=== PATIENT | female | born 1940 | race Caucasian/White ===

== ENCOUNTER 2016-07-23 18:40 | Observation (INO) | payer OTHER ==
[~2016-07-23] VITALS: Ht 160 cm; Wt 80.4 kg
[~2016-07-23 18:40] MED LIST: ATV/1 PO; FERR1TAB23 PO; FURO-85 PO; GABA-113 PO; LPR25 PO; POTA-335 PO; PRLSR20 PO; SERT-234 PO; SUCR1TAB29 PO; VSC/5 PO
--- NOTE | 2016-07-23 19:23 | DIAGNOSTIC IMAGING REPORT ---
SINGLE VIEW CHEST CLINICAL HISTORY: Dyspnea. FINDINGS: An AP, portable, semierect chest radiograph is compared to study dated 05/13/2016 and correlated with chest CT dated 02/06/2013. The examination is degraded by portable technique, large body habitus, and patient rotation. The heart is enlarged and there is atherosclerotic calcification of the thoracic aorta. The pulmonary vasculature is noncongested. There is chronic elevation of the left hemidiaphragm with left basilar atelectasis. No airspace consolidation is seen typical for pneumonia and there is no large pleural effusion. No pneumothorax is seen. The skeletal structures are osteopenic. Calcific tendinopathy is present in the right shoulder. The bony thorax is grossly intact. Thoracolumbar fusion hardware is partially imaged. IMPRESSION: 1. Cardiomegaly without radiographic evidence of congestive failure. 2. Chronic parenchymal changes are similar to prior studies. There is no acute abnormality seen. Electronically signed by: Pelon Ring M.D. 07/23/2016 7:21 PM Dictated Date/Time: 07/23/2016 7:20 PM
[2016-07-23] MEDS ORDERED: OPTIRAY 320 IV PRN (19:30)
[2016-07-23 19:32] LABS: BASO % 0.3 %; BASO ABS # 0.02 K/uL (0-0.2); COMPLETE YES; EOS % 3.5 %; HEMATOCRIT 43.4 % (37-47); IG% 0.2 %; LYMPH % 12.9 %; LYMPH ABS # 0.81 K/uL (1.2-3.4); MEAN CELL VOLUME 92.1 fL (80-100); MEAN CORPUSCULAR HEMOGLOBIN 31.4 pg (25-34); MEAN CORPUSCULAR HGB CONC 34.1 g/dl (32-36); MEAN PLATELET VOLUME 9.4 fL (7.4-10.4); MONO % 6.3 %; NEUT % 76.8 %; PLATELET COUNT 227 K/uL (130-400); RED BLOOD COUNT 4.71 M/uL (4.2-5.4)
[2016-07-23 19:43] LABS: PROTHROMBIN TIME (PATIENT) 10.3 SECONDS (9.0-12.0)
[2016-07-23 19:48] LABS: BLOOD UREA NITROGEN 18 mg/dl (7-18); BUN/CREATININE RATIO 25.8 (10-20); CALCIUM 8.9 mg/dl (8.5-10.1); CARBON DIOXIDE 28 mmol/L (21-32); CHLORIDE 105 mmol/L (98-107); CREATININE 0.71 mg/dl (0.60-1.20); GLUCOSE 112 mg/dl (70-99); POTASSIUM 4.1 mmol/L (3.5-5.1); SODIUM 143 mmol/L (136-145)
[2016-07-23] MEDS ORDERED: FUROSEMIDE 40 MG/4 ML VIAL IV STA (20:18)
--- NOTE | 2016-07-23 20:42 | DIAGNOSTIC IMAGING REPORT ---
CT ANGIOGRAM OF THE CHEST CLINICAL HISTORY: Dyspnea. COMPARISON STUDY: Chest x-ray dated 07/23/2016. Chest CT dated 02/06/2013. TECHNIQUE: Following the IV administration of 109 cc of Optiray 320, CT angiogram of the chest was performed from the upper abdomen to the thoracic inlet utilizing the pulmonary embolus protocol. Images are reviewed in the axial, sagittal, and coronal planes. 3-D MIPS images are created and assessed. IV contrast was administered without complication. Streak artifact from orthopedic hardware degrades the examination. CT DOSE: 568.14 mGy.cm FINDINGS: Thyroid: Imaged portions of the thyroid gland are normal in size and attenuation. Thoracic aorta: There is mild atherosclerotic calcification of the thoracic aorta, which is normal in caliber and demonstrates bovine variant arch anatomy. No dissection is seen. Pulmonary vasculature: The main pulmonary arteries are dilated suggesting pulmonary artery hypertension. There are no filling defects identified in main, lobar, or segmental pulmonary branches to suggest pulmonary embolus. Heart: The heart is enlarged and there is a small pericardial effusion. Lungs and pleural spaces: Evaluation of the lung parenchyma is significantly degraded by respiratory motion artifact. There is chronic elevation of the left hemidiaphragm with left basilar atelectasis. No airspace consolidation or pleural effusion is identified. There are scattered calcified granulomas. The trachea and central airways are clear. Mediastinum: There is no mediastinal lymphadenopathy. Priscilla: Clear. Axillae: There is no axillary lymphadenopathy. Upper abdomen: The spleen is mildly enlarged measuring 14 cm in length. Calcified splenic granulomas are observed. An indeterminant 1.2 splenic hypodensity is again noted Cortical atrophy is noted in the partially imaged kidneys. There is a tiny hiatal hernia. Skeletal structures: The skeletal structures are osteopenic. No lytic or blastic bony lesions are seen. Degenerative change is present throughout the thoracic spine. Postoperative change and fusion rods are identified at the thoracolumbar junction. Fusion hardware is also noted in the lower cervical spine. Arthritic change is also identified in the shoulders. IMPRESSION: 1. Motion degraded examination. 2. There is no evidence of pulmonary embolus in the main, lobar, or segmental pulmonary arteries. 3. Cardiomegaly. 4. There is no airspace consolidation or pleural effusion. 5. Mild splenomegaly. 6. Additional changes as above. Electronically signed by: Pelon Ring M.D. 07/23/2016 8:40 PM Dictated Date/Time: 07/23/2016 8:31 PM
[2016-07-23 21:55] LABS: ALKALINE PHOSPHATASE 104 U/L (45-117); ALT/SGPT 25 U/L (12-78); AST/SGOT 20 U/L (15-37)
--- NOTE | 2016-07-23 22:01 | EMERGENCY ROOM VISIT NOTE ---
History Report prepared by Marlen: Makenzie Toscano Under the Supervision of: Dr. Edyta Shook M.D. First contact with patient: 18:56 Chief Complaint: BACK PAIN Stated Complaint: BACK PAIN History of Present Illness The patient is a 76 year old female who presents to the Emergency Room with complaints of worsening back pain for the past week. She also reports shortness of breath. She was feeling well today, but states that after eating dinner this evening her symptoms returned and were worse. The patient rates her pain as an 8 /10 in severity. Walking exacerbates her pain. She notes a feeling of "tightness " in her back. She denies fever, cough, and abdominal pain, and pain or swelling in her legs. Source of History: patient Onset: 1 week ago Position: back Symptom Intensity: 8/10 Quality: other (tightness) Timing: worsening Modifying Factors (Worsening): other (walking) Associated Symptoms: + SOB, No abdominal pain, No cough, No fevers Review of Systems See HPI for pertinent positives & negatives. A total of 10 systems reviewed and were otherwise negative. Past Medical & Surgical Medical Problems: (1) Arthritis (2) Benign hypertension (3) Hyperlipidemia (4) Osteoporosis Nos Surgical Problems: (1) Abn React-Artif Implant (2) Acq Spondylolisthesis (3) Spinal Stenosis-Thoracic Family History No pertinent family history Social History Smoking Status: Never Smoker Alcohol Use: none Drug Use: none Marital Status: Housing Status: lives with family Occupation Status: retired Current/Historical Medications Scheduled Ferrous Sulfate (Iron), 325 MG PO DAILY Furosemide (Lasix), 20 MG PO QAM Gabapentin (Neurontin), 300 MG PO QID Metoprolol Tartrate (Lopressor), 25 MG PO BID Omeprazole (Prilosec), 20 MG PO DAILY Potassium Chloride (Micro-K Ext Rel), 20 MEQ PO DAILY Sertraline (Zoloft), 100 MG PO QPM Solifenacin (Vesicare), 5 MG PO DAILY Scheduled PRN Lorazepam (Ativan), 1 MG PO TID PRN for Anxiety Allergies Coded Allergies: No Known Allergies (Unverified , 05/13/16) Physical Exam Vital Signs Date Time Temp Pulse Resp B/P Pulse Ox O2 Delivery O2 Flow Rate FiO2 07/23/16 20:35 70 20 165/97 93 Room Air 07/23/16 19:20 61 07/23/16 18:43 36.8 77 20 179/99 91 Room Air Physical Exam CONSTITUTIONAL: Mild distress HEENT: No icterus, moist mucous membranes NECK: No meningismus, trachea is midline. CARDIOVASCULAR: Regular rate, normal perfusion RESPIRATORY: Unlabored breathing. Clear to auscultation. GASTROINTESTINAL: Non-tender GENITOURINARY: No flank tenderness MUSCULOSKELETAL: Full range of motion NEUROLOGIC: No acute gross focal deficits. PSYCHIATRIC: Normal affect SKIN: Normal for ethnicity. Medical Decision & Procedures ER Provider Diagnostic Interpretation: Radiology results as stated below per my review and radiologist interpretation. CT ANGIOGRAM OF THE CHEST CLINICAL HISTORY: Dyspnea. COMPARISON STUDY: Chest x-ray dated 07/23/2016. Chest CT dated 02/06/2013. TECHNIQUE: Following the IV administration of 109 cc of Optiray 320, CT angiogram of the chest was performed from the upper abdomen to the thoracic inlet utilizing the pulmonary embolus protocol. Images are reviewed in the axial, sagittal, and coronal planes. 3-D MIPS images are created and assessed. IV contrast was administered without complication. Streak artifact from orthopedic hardware degrades the examination. CT DOSE: 568.14 mGy.cm FINDINGS: Thyroid: Imaged portions of the thyroid gland are normal in size and attenuation. Thoracic aorta: There is mild atherosclerotic calcification of the thoracic aorta, which is normal in caliber and demonstrates bovine variant arch anatomy. No dissection is seen. Pulmonary vasculature: The main pulmonary arteries are dilated suggesting pulmonary artery hypertension. There are no filling defects identified in main, lobar, or segmental pulmonary branches to suggest pulmonary embolus. Heart: The heart is enlarged and there is a small pericardial effusion. Lungs and pleural spaces: Evaluation of the lung parenchyma is significantly degraded by respiratory motion artifact. There is chronic elevation of the left hemidiaphragm with left basilar atelectasis. No airspace consolidation or pleural effusion is identified. There are scattered calcified granulomas. The trachea and central airways are clear. Mediastinum: There is no mediastinal lymphadenopathy. Priscilla: Clear. Axillae: There is no axillary lymphadenopathy. Upper abdomen: The spleen is mildly enlarged measuring 14 cm in length. Calcified splenic granulomas are observed. An indeterminant 1.2 splenic hypodensity is again noted Cortical atrophy is noted in the partially imaged kidneys. There is a tiny hiatal hernia. Skeletal structures: The skeletal structures are osteopenic. No lytic or blastic bony lesions are seen. Degenerative change is present throughout the thoracic spine. Postoperative change and fusion rods are identified at the thoracolumbar junction. Fusion hardware is also noted in the lower cervical spine. Arthritic change is also identified in the shoulders. IMPRESSION: 1. Motion degraded examination. 2. There is no evidence of pulmonary embolus in the main, lobar, or segmental pulmonary arteries. 3. Cardiomegaly. 4. There is no airspace consolidation or pleural effusion. 5. Mild splenomegaly. 6. Additional changes as above. Electronically signed by: Pelon Ring M.D. 07/23/2016 8:40 PM Dictated Date/Time: 07/23/2016 8:31 PM SINGLE VIEW CHEST CLINICAL HISTORY: Dyspnea. FINDINGS: An AP, portable, semierect chest radiograph is compared to study dated 05/13/2016 and correlated with chest CT dated 02/06/2013. The examination is degraded by portable technique, large body habitus, and patient rotation. The heart is enlarged and there is atherosclerotic calcification of the thoracic aorta. The pulmonary vasculature is noncongested. There is chronic elevation of the left hemidiaphragm with left basilar atelectasis. No airspace consolidation is seen typical for pneumonia and there is no large pleural effusion. No pneumothorax is seen. The skeletal structures are osteopenic. Calcific tendinopathy is present in the right shoulder. The bony thorax is grossly intact. Thoracolumbar fusion hardware is partially imaged. IMPRESSION: 1. Cardiomegaly without radiographic evidence of congestive failure. 2. Chronic parenchymal changes are similar to prior studies. There is no acute abnormality seen. Electronically signed by: Pelon Ring M.D. 07/23/2016 7:21 PM Dictated Date/Time: 07/23/2016 7:20 PM Laboratory Results 07/23/16 19:20 Red Blood Count 4.71, Mean Corpuscular Volume 92.1, Mean Corpuscular Hemoglobin 31.4, Mean Corpuscular Hemoglobin Concent 34.1, Mean Platelet Volume 9.4, Neutrophils (%) (Auto) 76.8, Lymphocytes (%) (Auto) 12.9, Monocytes (%) (Auto) 6.3, Eosinophils (%) (Auto) 3.5, Basophils (%) (Auto) 0.3, Neutrophils # (Auto) 4.84, Lymphocytes # (Auto) 0.81, Monocytes # (Auto) 0.40, Eosinophils # (Auto) 0.22, Basophils # (Auto) 0.02 07/23/16 19:20 Test 07/23/16 19:20 07/23/16 21:30 White Blood Count 6.30 K/uL (4.8-10.8) Red Blood Count 4.71 M/uL (4.2-5.4) Hemoglobin 14.8 g/dL (12.0-16.0) Hematocrit 43.4 % (37-47) Mean Corpuscular Volume 92.1 fL (80-100) Mean Corpuscular Hemoglobin 31.4 pg (25-34) Mean Corpuscular Hemoglobin Concent 34.1 g/dl (32-36) Platelet Count 227 K/uL (130-400) Mean Platelet Volume 9.4 fL (7.4-10.4) Neutrophils (%) (Auto) 76.8 % Lymphocytes (%) (Auto) 12.9 % Monocytes (%) (Auto) 6.3 % Eosinophils (%) (Auto) 3.5 % Basophils (%) (Auto) 0.3 % Neutrophils # (Auto) 4.84 K/uL (1.4-6.5) Lymphocytes # (Auto) 0.81 K/uL (1.2-3.4) Monocytes # (Auto) 0.40 K/uL (0.11-0.59) Eosinophils # (Auto) 0.22 K/uL (0-0.5) Basophils # (Auto) 0.02 K/uL (0-0.2) RDW Standard Deviation 44.5 fL (36.4-46.3) RDW Coefficient of Variation 13.2 % (11.5-14.5) Immature Granulocyte % (Auto) 0.2 % Immature Granulocyte # (Auto) 0.01 K/uL (0.00-0.02) Prothrombin Time 10.3 SECONDS (9.0-12.0) Prothromb Time International Ratio 1.0 (0.9-1.1) Activated Partial Thromboplast Time 26.1 SECONDS (21.0-31.0) Partial Thromboplastin Ratio 1.0 Anion Gap 10.0 mmol/L (3-11) Estimated GFR () 97.3 Estimated GFR (Non- 83.9 BUN/Creatinine Ratio 25.8 (10-20) Calcium Level 8.9 mg/dl (8.5-10.1) Total Bilirubin 0.3 mg/dl (0.2-1) Direct Bilirubin < 0.1 mg/dl (0-0.2) Aspartate Amino Transf (AST/SGOT) 20 U/L (15-37) Alanine Aminotransferase (ALT/SGPT) 25 U/L (12-78) Alkaline Phosphatase 104 U/L (45-117) Troponin I 0.015 ng/ml (0-0.045) Pro-B-Type Natriuretic Peptide 6255 pg/ml (0-900) Total Protein 6.7 gm/dl (6.4-8.2) Albumin 4.2 gm/dl (3.4-5.0) Labs reviewed by ED physician. Medications Administered Medications (Trade) Dose Ordered Sig/Lashawn Route Start Time Stop Time Status Last Admin Dose Admin Furosemide (Lasix Inj) 40 mg NOW STAT IV 07/23/16 20:18 07/23/16 20:19 DC 07/23/16 20:35 40 MG ECG Indication: back/shoulder pain Rate (beats per minute): 61 Rhythm: normal sinus Findings: nonspecific-ST abn, RBBB ED Course 1857: Past medical records reviewed. The patient was evaluated in room C7. A complete history and physical examination was performed. 2018: Lasix 40 mg IV 2128: I spoke with Dr. Bryant. We discussed the patients results and treatment plan. The patient will be evaluated by the [facility] for further management. 2131: I reassessed the patient at this time. She is feeling better and resting comfortably. I discussed the results and treatment plan with the patient. I answered all pertaining questions that she had. She expressed understanding and verbalized agreement. Medical Decision Differential diagnoses includes musculoskeletal back pain, pulmonary embolism, coronary artery disease, CHF, pneumonia. 76-year-old presents to the emergency room for roughly 1 week of progressively worsening dyspnea with exertion with nonspecific nonpleuritic non-positional back pain which may have an exertional component. Bibasilar rales noted as well as mild pedal edema. B natruretic peptide noted to be elevated with satisfactory EKG and troponin. . Given Lasix IV and admission arranged with Dr. Berman Consults Time Called: 2114 Consulting Physician: Dr. Bryant Returned Call: [address] Bryant. We discussed the patients results and treatment plan. The patient will be evaluated by the [facility] for further management. Impression Primary Impression: CHF (congestive heart failure) Scribe Attestation The scribe's documentation has been prepared under my direction and personally reviewed by me in its entirety. I confirm that the note above accurately reflects all work, treatment, procedures, and medical decision making performed by me. Departure Information Dispostion Being Evaluated By Hospitalist Referrals Meredith Mora M.D. (PCP) Patient Instructions My [facility] Problem Qualifiers Primary Impression: CHF (congestive heart failure) Congestive heart failure type: unspecified congestive heart failure type
[2016-07-23 22:02] LABS: URINE APPEARANCE CLEAR (CLEAR); URINE BILIRUBIN NEG (NEG); URINE COLOR YELLOW; URINE NITRITE NEG (NEG); URINE PH 7.5 (4.5-7.5); URINE SPECIFIC GRAVITY 1.009 (1.000-1.030); UROBILINOGEN NEG (NEG)
[2016-07-23 22:06] LABS: MANUAL MICROSCOPIC REQUIRED? NO; REVIEW REQ? NO
[2016-07-23] MEDS ORDERED: BISACODYL 10 MG SUPP PR PRN (22:30)
[2016-07-23] MEDS ORDERED: DiphenhydrAMINE HCL 50 MG/ML VIAL IV PRN (22:30)
[2016-07-23] MEDS ORDERED: NITROGLYCERIN 0.4 MG SL PER TAB CHARGE SL PRN (22:30)
[2016-07-23] MEDS ORDERED: ALUMINUM/MAGNESIUM/SIMETH (MAALOX MAX) 30 ML UDC PO PRN (22:30)
[2016-07-23] MEDS ORDERED: MoRPHine SULFATE 2 MG/ML CARP IV PRN (22:30)
[2016-07-23] MEDS ORDERED: LORAZEPAM 1 MG TAB PO PRN (22:30)
[2016-07-23] MEDS ORDERED: MoRPHine SULFATE 4 MG/ML 1 ML CARP\\VIAL IV PRN (22:30)
[2016-07-23] MEDS ORDERED: ONDANSETRON INJ 2 MG/ML 2 ML VIAL IV PRN ×2 (22:30)
[2016-07-23] MEDS ORDERED: LORAZEPAM 2 MG/ML 1 ML VIAL IV PRN (22:30)
[2016-07-23] MEDS ORDERED: ZOLPIDEM TARTRATE 5 MG TAB PO PRN ×2 (22:30)
[2016-07-23] MEDS ORDERED: MAGNESIUM HYDROXIDE SUSP 30 ML UDC PO PRN (22:30)
[2016-07-23] MEDS ORDERED: PROMETHAZINE HCL INJ 12.5 MG in SODIUM CHLORIDE 0.9% 50ML 50 ML IV PRN (22:30)
[2016-07-23] MEDS ORDERED: ACETAMINOPHEN 325 MG TAB PO PRN ×2 (22:30)
[2016-07-23] MEDS ORDERED: IV FLUIDS COMPLETED PRN (23:00)
[2016-07-23 23:26] VITALS: BP 162/82; PULSE 63; TEMP 36.7; O2SAT 93
[2016-07-23 23:41] LABS: CKMB/CK RATIO 3.1 (0-3.0)
[2016-07-23] MEDS: GABAPENTIN 300 MG CAP PO SCH (23:51)
[2016-07-23] MEDS: SERTRALINE HCL 100 MG TAB PO SCH (23:51)
[2016-07-24] VITALS (8 sets, daily range): BP systolic 108–162; BP diastolic 59–84; PULSE 57–95; TEMP 35.1–37.5; O2SAT 90–93; Ht 160 cm; Wt 80.4 kg
--- NOTE | 2016-07-24 04:32 | History and Physical ---
History & Physical Date & Time of Service: Jul 24, 2016 at 04:20 Chief Complaint: Chf(Congestive Heart Failure), Shortness Of Breath Primary Care Physician: Meredith Mora M.D. History of Present Illness Source: patient, family The patient is a 76-year-old female who presents to the emergency department with complaint of worsening back pain for the past week and shortness of breath. She reports that she began to get short of breath after eating dinner this evening. Her back pain is worse with activity such as walking, and she avoids doing any kind of heavy lifting. She has had brendon placement in her lumbosacral spine by Dr. Randle from orthopedics in the past. She also complains of right knee pain, and has has a history of a right total knee arthroplasty by Dr. Shepherd in the past Past Medical/Surgical History Medical Problems: (1) Arthritis Status: Chronic (2) Benign hypertension Status: Chronic (3) Hyperlipidemia Status: Chronic Family History No pertinent family history Social History Smoking Status: Never Smoker Smokeless Tobacco Use: No Alcohol Use: none Drug Use: none Marital Status: Housing status: lives with family Occupational Status: retired Immunizations History of Influenza Vaccine: N/A History of Tetanus Vaccine?: No History of Pneumococcal: Yes Pneumococcal Date: Feb 11, 2013 History of Hepatitis B Vaccine: No Multi-Drug Resistant Organisms History of MDRO: No Allergies Coded Allergies: No Known Allergies (Unverified , 05/13/16) Home Medications Scheduled Ferrous Sulfate (Iron), 325 MG PO DAILY Furosemide (Lasix), 20 MG PO QAM Gabapentin (Neurontin), 300 MG PO QID Metoprolol Tartrate (Lopressor), 25 MG PO BID Omeprazole (Prilosec), 20 MG PO DAILY Potassium Chloride (Micro-K Ext Rel), 20 MEQ PO DAILY Sertraline (Zoloft), 100 MG PO QPM Solifenacin (Vesicare), 5 MG PO DAILY Scheduled PRN Lorazepam (Ativan), 1 MG PO TID PRN for Anxiety Review of Systems The patient denies chest pain, palpitations, cough, lower extremity swelling, vision change, hearing change, sore throat, fevers, chills, sweats, weight change, fatigue, nausea, vomiting, abdominal pain, pelvic pain, blood in urine or stool, dysuria, urinary frequency or urgency, lightheadedness, dizziness, headache, memory loss, rash, abnormal bruising or bleeding, imbalance, focal or generalized weakness, arthralgias or myalgias, night sweats, or allergy symptoms. The review of systems is otherwise negative other than for that already noted above, and at least 10 systems have been reviewed. Physical Exam Vital Signs Date Time Temp Pulse Resp B/P Pulse Ox O2 Delivery O2 Flow Rate FiO2 07/24/16 01:00 36.7 63 16 162/82 93 Room Air 07/23/16 23:26 36.7 63 20 162/82 93 Room Air 07/23/16 22:40 60 18 94 07/23/16 20:35 70 20 165/97 93 Room Air 07/23/16 19:20 61 07/23/16 18:43 36.8 77 20 179/99 91 Room Air The patient is awake, well-developed and adequately nourished, alert and oriented 3, normocephalic and atraumatic, lying in bed and in no acute distress. HEENT--PERRL, EOMI, mucous membranes moist, and oropharynx normal. Neck--supple, no JVD or bruits, thyroid normal, trachea midline, no adenopathy. Heart--normal S1 and S2, no extra beats, no murmurs, rubs or gallops. Lungs--clear bilaterally with good air movement, no respiratory distress, no accessory muscle use. Abdomen--normal bowel sounds and soft, nontender and nondistended, no hernias or masses, no organomegaly. Extremities--no cyanosis, clubbing or edema. There are good distal pulses b/l. Dermatologic--normal skin turgor, normal color, warm and dry, no abnormal lymph nodes, no rash. Neurologic--cranial nerves II through XII grossly intact. Rheumatologic--no reducible pain over lumbar spine area, there is paraspinal muscle spasm noted. Psychiatric--normal affect. Diagnostics Laboratory Results Results Past 24 Hours Test 07/23/16 19:20 07/23/16 21:30 07/23/16 22:50 Range/Units White Blood Count 6.30 4.8-10.8 K/uL Red Blood Count 4.71 4.2-5.4 M/uL Hemoglobin 14.8 12.0-16.0 g/dL Hematocrit 43.4 37-47 % Mean Corpuscular Volume 92.1 80-100 fL Mean Corpuscular Hemoglobin 31.4 25-34 pg Mean Corpuscular Hemoglobin Concent 34.1 32-36 g/dl Platelet Count 227 130-400 K/uL Mean Platelet Volume 9.4 7.4-10.4 fL Neutrophils (%) (Auto) 76.8 % Lymphocytes (%) (Auto) 12.9 % Monocytes (%) (Auto) 6.3 % Eosinophils (%) (Auto) 3.5 % Basophils (%) (Auto) 0.3 % Neutrophils # (Auto) 4.84 1.4-6.5 K/uL Lymphocytes # (Auto) 0.81 1.2-3.4 K/uL Monocytes # (Auto) 0.40 0.11-0.59 K/uL Eosinophils # (Auto) 0.22 0-0.5 K/uL Basophils # (Auto) 0.02 0-0.2 K/uL RDW Standard Deviation 44.5 36.4-46.3 fL RDW Coefficient of Variation 13.2 11.5-14.5 % Immature Granulocyte % (Auto) 0.2 % Immature Granulocyte # (Auto) 0.01 0.00-0.02 K/uL Prothrombin Time 10.3 9.0-12.0 SECONDS Prothromb Time International Ratio 1.0 0.9-1.1 Activated Partial Thromboplast Time 26.1 21.0-31.0 SECONDS Partial Thromboplastin Ratio 1.0 Sodium Level 143 136-145 mmol/L Potassium Level 4.1 3.5-5.1 mmol/L Chloride Level 105 98-107 mmol/L Carbon Dioxide Level 28 21-32 mmol/L Anion Gap 10.0 3-11 mmol/L Blood Urea Nitrogen 18 7-18 mg/dl Creatinine 0.71 0.60-1.20 mg/dl Estimated GFR () 97.3 Estimated GFR (Non- 83.9 BUN/Creatinine Ratio 25.8 10-20 Random Glucose 112 70-99 mg/dl Calcium Level 8.9 8.5-10.1 mg/dl Total Bilirubin 0.3 0.2-1 mg/dl Direct Bilirubin < 0.1 0-0.2 mg/dl Aspartate Amino Transf (AST/SGOT) 20 15-37 U/L Alanine Aminotransferase (ALT/SGPT) 25 12-78 U/L Alkaline Phosphatase 104 45-117 U/L Troponin I 0.015 < 0.015 0-0.045 ng/ml Pro-B-Type Natriuretic Peptide 6255 0-900 pg/ml Total Protein 6.7 6.4-8.2 gm/dl Albumin 4.2 3.4-5.0 gm/dl Urine Color YELLOW Urine Appearance CLEAR CLEAR Urine pH 7.5 4.5-7.5 Urine Specific [place] 1.009 1.000-1.030 Urine Protein NEG NEG Urine Glucose (UA) NEG NEG Urine Ketones NEG NEG Urine Occult Blood NEG NEG Urine Nitrite NEG NEG Urine Bilirubin NEG NEG Urine Urobilinogen NEG NEG Urine Leukocyte Esterase NEG NEG Total Creatine Kinase 96 26-192 U/L Creatine Kinase MB 3.0 0.5-3.6 ng/ml Creatine Kinase MB Ratio 3.1 0-3.0 Diagnostic Radiology Patient Name: VERONICA HASKINS Unit Number: [id number] Dictated: 07/23/162030 Transcribed: 07/23/162030 EV Printed Date/Time: [~ rep prt dt]/[~ rep prt tm] [~ rep ct labl] - [~ rep ct ivnm] [facility] Radiology Department [place] [id number] Dictated: 07/23/162030 Transcribed: 07/23/162030 EV Printed Date/Time: [~ rep prt dt]/[~ rep prt tm] [~ rep ct labl] - [~ rep ct ivnm] CT ANGIOGRAM OF THE CHEST CLINICAL HISTORY: Dyspnea. COMPARISON STUDY: Chest x-ray dated 07/23/2016. Chest CT dated 02/06/2013. TECHNIQUE: Following the IV administration of 109 cc of Optiray 320, CT angiogram of the chest was performed from the upper abdomen to the thoracic inlet utilizing the pulmonary embolus protocol. Images are reviewed in the axial, sagittal, and coronal planes. 3-D MIPS images are created and assessed. IV contrast was administered without complication. Streak artifact from orthopedic hardware degrades the examination. CT DOSE: 568.14 mGy.cm FINDINGS: Thyroid: Imaged portions of the thyroid gland are normal in size and attenuation. Thoracic aorta: There is mild atherosclerotic calcification of the thoracic aorta, which is normal in caliber and demonstrates bovine variant arch anatomy. No dissection is seen. Pulmonary vasculature: The main pulmonary arteries are dilated suggesting pulmonary artery hypertension. There are no filling defects identified in main, lobar, or segmental pulmonary branches to suggest pulmonary embolus. Heart: The heart is enlarged and there is a small pericardial effusion. Lungs and pleural spaces: Evaluation of the lung parenchyma is significantly degraded by respiratory motion artifact. There is chronic elevation of the left hemidiaphragm with left basilar atelectasis. No airspace consolidation or pleural effusion is identified. There are scattered calcified granulomas. The trachea and central airways are clear. Mediastinum: There is no mediastinal lymphadenopathy. Priscilla: Clear. Axillae: There is no axillary lymphadenopathy. Upper abdomen: The spleen is mildly enlarged measuring 14 cm in length. Calcified splenic granulomas are observed. An indeterminant 1.2 splenic hypodensity is again noted Cortical atrophy is noted in the partially imaged kidneys. There is a tiny hiatal hernia. Skeletal structures: The skeletal structures are osteopenic. No lytic or blastic bony lesions are seen. Degenerative change is present throughout the thoracic spine. Postoperative change and fusion rods are identified at the thoracolumbar junction. Fusion hardware is also noted in the lower cervical spine. Arthritic change is also identified in the shoulders. IMPRESSION: 1. Motion degraded examination. 2. There is no evidence of pulmonary embolus in the main, lobar, or segmental pulmonary arteries. 3. Cardiomegaly. 4. There is no airspace consolidation or pleural effusion. 5. Mild splenomegaly. 6. Additional changes as above. Electronically signed by: Pelon Ring M.D. 07/23/2016 8:40 PM Dictated Date/Time: 07/23/2016 8:31 PM The status of this report is Signed. Draft = Not yet reviewed or approved by Radiologist. Signed = Reviewed and approved by Radiologist. <AttendingPhy></AttendingPhy> <FamilyPhy>Meredith Mora M.D.</FamilyPhy> < PrimaryPhy>Meredith Mora M.D.</PrimaryPhy> <UnitNumber>[id number]</UnitNumber> <VisitNumber>[id number]</VisitNumber> <PatientName>VERONICA HASKINS</ PatientName> <DateOfBirth>1940</DateOfBirth> <Location>[facility]</Location> < ServiceDate>07/23/16</ServiceDate> <MNE>ESINDI</MNE> <OrderingPhy>Ashley Shook MD</OrderingPhy> <OrderingPhyMNE>f rep ord dr aguilera</OrderingPhyMNE> < DictatingPhyMNE>f rep dict dr aguilera</DictatingPhyMNE> <CCListMNE>f rep ct mnjones</ CCListMNE> <AdmittingPhyMNE>f pt admit dr aguilera</AdmittingPhyMNE> <AttendingPhyMNE >f pt attend dr aguilera</AttendingPhyMNE> <ConsultingPhyMNE>f pt consult dr aguilera</ConsultingPhyMNE> <FamilyPhyMNE>f pt fam dr aguilera</FamilyPhyMNE> <OtherPhyMNE>f pt other dr aguilera</OtherPhyMNE> < PrimaryPhyMNE>f pt prim care dr aguilera</PrimaryPhyMNE> <ReferringPhyMNE>f pt referring dr aguilera</ReferringPhyMNE> Patient Name: VERONICA HASKINS Unit Number: [id number] Dictated: 07/23/161919 Transcribed: 07/23/161919 EV Printed Date/Time: [~ rep prt dt]/[~ rep prt tm] [~ rep ct labl] - [~ rep ct ivnm] [facility] [place] [place] [address] Dictated: 07/23/161919 Transcribed: 07/23/161919 EV Printed Date/Time: [~ rep prt dt]/[~ rep prt tm] [~ rep ct labl] - [~ rep ct ivnm] SINGLE VIEW CHEST CLINICAL HISTORY: Dyspnea. FINDINGS: An AP, portable, semierect chest radiograph is compared to study dated 05/13/2016 and correlated with chest CT dated 02/06/2013. The examination is degraded by portable technique, large body habitus, and patient rotation. The heart is enlarged and there is atherosclerotic calcification of the thoracic aorta. The pulmonary vasculature is noncongested. There is chronic elevation of the left hemidiaphragm with left basilar atelectasis. No airspace consolidation is seen typical for pneumonia and there is no large pleural effusion. No pneumothorax is seen. The skeletal structures are osteopenic. Calcific tendinopathy is present in the right shoulder. The bony thorax is grossly intact. Thoracolumbar fusion hardware is partially imaged. IMPRESSION: 1. Cardiomegaly without radiographic evidence of congestive failure. 2. Chronic parenchymal changes are similar to prior studies. There is no acute abnormality seen. Electronically signed by: Pelon Ring M.D. 07/23/2016 7:21 PM Dictated Date/Time: 07/23/2016 7:20 PM The status of this report is Signed. Draft = Not yet reviewed or approved by Radiologist. Signed = Reviewed and approved by Radiologist. <AttendingPhy></AttendingPhy> <FamilyPhy>Meredith Mora M.D.</FamilyPhy> < PrimaryPhy>Meredith Mora M.D.</PrimaryPhy> <UnitNumber>[id number]</UnitNumber> <VisitNumber>[id number]</VisitNumber> <PatientName>VERONICA HASKINS</ PatientName> <DateOfBirth>1940</DateOfBirth> <Location>[facility]</Location> < ServiceDate>07/23/16</ServiceDate> <MNE>ESINDI</MNE> <OrderingPhy>Ashley Shook MD</OrderingPhy> <OrderingPhyMNE>f rep ord dr aguilera</OrderingPhyMNE> < DictatingPhyMNE>f rep dict dr aguilera</DictatingPhyMNE> <CCListMNE>f rep ct ale</ CCListMNE> <AdmittingPhyMNE>f pt admit dr aguilera</AdmittingPhyMNE> <AttendingPhyMNE >f pt attend dr aguilera</AttendingPhyMNE> <ConsultingPhyMNE>f pt consult dr aguilera</ConsultingPhyMNE> <FamilyPhyMNE>f pt fam dr aguilera</FamilyPhyMNE> <OtherPhyMNE>f pt other dr aguilera</OtherPhyMNE> < PrimaryPhyMNE>f pt prim care dr aguilera</PrimaryPhyMNE> <ReferringPhyMNE>f pt referring dr aguilera</ReferringPhyMNE> EKG EKG shows normal sinus rhythm at 61, with right bundle branch block, left anterior fascicular block, and no acute ST-T changes. Impression Assessment and Plan Shortness of breath--we will admitted to the telemetry unit, for serial cardiac enzymes, cardiac rhythm monitoring, and a 2-D echocardiogram with Dopplers. Low back pain with history of brendon placement--we will consult Dr. Randle her orthopedic surgeon. Right knee pain--status post right total knee arthroplasty--we'll consult her orthopedist Dr. Shepherd. An x-ray has been ordered. Hypertension--continue metoprolol tartrate 25 mg by mouth twice a day, furosemide 20 mg by mouth every morning and potassium chloride 20 mEq by mouth daily. Peripheral neuropathy--continue gabapentin 300 mg by mouth 4 times a day. Depression/anxiety--continue sertraline 100 mg by mouth every evening, and lorazepam 1 mg by mouth 3 times a day when necessary. GERD--change omeprazole 20 mg by mouth daily to pantoprazole 40 mg by mouth daily. Bladder spasm--change Vesicare 5 mg by mouth daily oxybutynin XL 5 mg by mouth daily. Level of Care Telemetry Advanced Directives Existing Advance Directive: No Existing Living Will: No Existing Power of Transitional Living Specialist: Yes Resuscitation Status FULL RESUSCITATION VTE Prophylaxis VTE Risk Assessment Done? Y/N: Yes Risk Level: Moderate Given or contraindicated: SCD's Social Service Consult None Apply
[2016-07-24 06:59] LABS: BASO % 0.1 %; BASO ABS # 0.01 K/uL (0-0.2); COMPLETE YES; HEMATOCRIT 40.6 % (37-47); IG% 0.1 %; LYMPH % 8.5 %; LYMPH ABS # 0.67 K/uL (1.2-3.4); MEAN CELL VOLUME 93.1 fL (80-100); MEAN CORPUSCULAR HEMOGLOBIN 30.7 pg (25-34); MEAN PLATELET VOLUME 9.7 fL (7.4-10.4); MONO % 6.9 %; NEUT % 83.4 %; PLATELET COUNT 213 K/uL (130-400); RED BLOOD COUNT 4.36 M/uL (4.2-5.4); WHITE BLOOD COUNT 7.88 K/uL (4.8-10.8)
[2016-07-24 07:30] LABS: CALCIUM 8.6 mg/dl (8.5-10.1); CREATININE 0.79 mg/dl (0.60-1.20); MAGNESIUM 2.3 mg/dl (1.8-2.4); POTASSIUM 3.9 mmol/L (3.5-5.1)
[2016-07-24 07:35] LABS: CKMB/CK RATIO 4.4 (0-3.0)
--- NOTE | 2016-07-24 08:14 | DIAGNOSTIC IMAGING REPORT ---
RIGHT KNEE 3 VIEWS CLINICAL HISTORY: Right knee pain COMPARISON: None. DISCUSSION: There are postsurgical changes of a total right knee arthroplasty. No fractures or dislocations are visualized. There is no conventional radiographic evidence of loosening. IMPRESSION: Postsurgical changes of a total right knee arthroplasty. No fractures are visualized. Electronically signed by: James Julian M.D. 07/24/2016 8:12 AM Dictated Date/Time: 07/24/2016 8:11 AM
[2016-07-24] MEDS ORDERED: METOPROLOL TARTRATE 25 MG TAB PO SCH (09:00)
[2016-07-24] MEDS ORDERED: FUROSEMIDE 20 MG TAB PO SCH (09:00)
[2016-07-24] MEDS: DOCUSATE SODIUM 100 MG CAP PO SCH ×2 (09:11→20:47)
[2016-07-24] MEDS: GABAPENTIN 300 MG CAP PO SCH ×4 (09:11→20:48)
[2016-07-24] MEDS: POTASSIUM CHLORIDE 20 MEQ TABCR PO SCH (09:12)
[2016-07-24] MEDS: FERROUS SULFATE 325 MG TAB PO SCH (09:12)
[2016-07-24] MEDS: OXYBUTYNIN CHLORIDE 5 MG TABCR PO SCH (09:13)
[2016-07-24] MEDS: PANTOprazole SOD 40 MG TAB PO SCH (09:13)
--- NOTE | 2016-07-24 11:15 | Progress Note ---
Subjective Date of Service: Jul 24, 2016. Subjective Pt evaluation today including: conversation w/ patient, chart review, lab review, review of studies Voiding: no voiding problems Problem List Medical Problems: (1) Anxiety Status: Acute (2) Anxiety Status: Acute (3) Anxiety about health Status: Acute (4) Anxiety reaction Status: Acute (5) Arthritis of right hip Status: Acute (6) CHF (congestive heart failure) Status: Acute (7) Dizziness Status: Acute (8) Hip pain, chronic Status: Acute (9) Musculoskeletal pain Status: Acute Review of Systems Constitutional: No chills, No fever Eyes: No worsening of vision ENT: No hearing loss Respiratory: + shortness of breath, No cough, No sputum Cardiac: No chest pain Abdomen: No nausea, No pain, No vomiting Musculoskeletal: + joint pain, + muscle pain, + see HPI Female : No hematuria Neurologic: No numbness/tingling, No paralysis, No weakness Psychiatric: No depression symptoms Endo: No fatigue Skin: No rash Objective Vital Signs Date Time Temp Pulse Resp B/P Pulse Ox O2 Delivery O2 Flow Rate FiO2 07/24/16 08:40 Room Air 07/24/16 06:51 36.3 90 18 137/79 91 Room Air 07/24/16 05:00 35.1 95 20 142/84 92 Room Air 07/24/16 04:10 Room Air 07/24/16 01:00 36.7 63 16 162/82 93 Room Air 07/23/16 23:26 36.7 63 20 162/82 93 Room Air 07/23/16 22:40 60 18 94 07/23/16 20:35 70 20 165/97 93 Room Air 07/23/16 19:20 61 07/23/16 18:43 36.8 77 20 179/99 91 Room Air Physical Exam General Appearance: WD/WN, no apparent distress Eyes: PERRL, EOMI ENT: normal ENT inspection, pharynx normal Neck: supple Respiratory/Chest: lungs clear, normal breath sounds, no respiratory distress, no accessory muscle use Cardiovascular: regular rate, rhythm, no edema, no gallop, no JVD, no murmur Abdomen: non tender, soft, no organomegaly Extremities: normal range of motion, non-tender, normal inspection, no pedal edema Neurologic/Psychiatric: staffing specialist II-XII nml as tested, no motor/sensory deficits, alert, normal mood/affect, oriented x 3 Skin: normal color, warm/dry, no rash Laboratory Results Last 24 Hours Test 07/23/16 19:20 07/23/16 21:30 07/23/16 22:50 07/24/16 06:30 White Blood Count 6.30 K/uL 7.88 K/uL Red Blood Count 4.71 M/uL 4.36 M/uL Hemoglobin 14.8 g/dL 13.4 g/dL Hematocrit 43.4 % 40.6 % Mean Corpuscular Volume 92.1 fL 93.1 fL Mean Corpuscular Hemoglobin 31.4 pg 30.7 pg Mean Corpuscular Hemoglobin Concent 34.1 g/dl 33.0 g/dl Platelet Count 227 K/uL 213 K/uL Mean Platelet Volume 9.4 fL 9.7 fL Neutrophils (%) (Auto) 76.8 % 83.4 % Lymphocytes (%) (Auto) 12.9 % 8.5 % Monocytes (%) (Auto) 6.3 % 6.9 % Eosinophils (%) (Auto) 3.5 % 1.0 % Basophils (%) (Auto) 0.3 % 0.1 % Neutrophils # (Auto) 4.84 K/uL 6.57 K/uL Lymphocytes # (Auto) 0.81 K/uL 0.67 K/uL Monocytes # (Auto) 0.40 K/uL 0.54 K/uL Eosinophils # (Auto) 0.22 K/uL 0.08 K/uL Basophils # (Auto) 0.02 K/uL 0.01 K/uL RDW Standard Deviation 44.5 fL 45.2 fL RDW Coefficient of Variation 13.2 % 13.3 % Immature Granulocyte % (Auto) 0.2 % 0.1 % Immature Granulocyte # (Auto) 0.01 K/uL 0.01 K/uL Prothrombin Time 10.3 SECONDS Prothromb Time International Ratio 1.0 Activated Partial Thromboplast Time 26.1 SECONDS Partial Thromboplastin Ratio 1.0 Sodium Level 143 mmol/L 144 mmol/L Potassium Level 4.1 mmol/L 3.9 mmol/L Chloride Level 105 mmol/L 106 mmol/L Carbon Dioxide Level 28 mmol/L 31 mmol/L Anion Gap 10.0 mmol/L 7.0 mmol/L Blood Urea Nitrogen 18 mg/dl 20 mg/dl Creatinine 0.71 mg/dl 0.79 mg/dl Estimated GFR () 97.3 85.5 Estimated GFR (Non- 83.9 73.7 BUN/Creatinine Ratio 25.8 25.0 Random Glucose 112 mg/dl 121 mg/dl Calcium Level 8.9 mg/dl 8.6 mg/dl Total Bilirubin 0.3 mg/dl Direct Bilirubin < 0.1 mg/dl Aspartate Amino Transf (AST/SGOT) 20 U/L Alanine Aminotransferase (ALT/SGPT) 25 U/L Alkaline Phosphatase 104 U/L Troponin I 0.015 ng/ml < 0.015 ng/ml 0.037 ng/ml Pro-B-Type Natriuretic Peptide 6255 pg/ml Total Protein 6.7 gm/dl Albumin 4.2 gm/dl Urine Color YELLOW Urine Appearance CLEAR Urine pH 7.5 Urine Specific [place] 1.009 Urine Protein NEG Urine Glucose (UA) NEG Urine Ketones NEG Urine Occult Blood NEG Urine Nitrite NEG Urine Bilirubin NEG Urine Urobilinogen NEG Urine Leukocyte Esterase NEG Total Creatine Kinase 96 U/L 57 U/L Creatine Kinase MB 3.0 ng/ml 2.5 ng/ml Creatine Kinase MB Ratio 3.1 4.4 Est Creatinine Clear Calc Drug Dose 62.7 ml/min Magnesium Level 2.3 mg/dl Assessment and Plan The patient is a 76-year-old female who presents to ED with worsening back pain for the past week and shortness of breath. She has Hx of brendon placement in her lumbosacral spine by Dr. Randle from orthopedics in the past. She also complains of right knee pain, and has has a history of a right total knee arthroplasty by Dr. Shepherd in the past Assessment/plan: Shortness of breath- Likely acute on chronic diastolic CHF exacerbation (Diastolic dysfunction based on Echo in 2011) 2-D echocardiogram with Dopplers. change lasix to 20mg IV BID potassium chloride 20 mEq by mouth daily. Low back pain with history of brendon placement consult Dr. Randle her orthopedic surgeon. PT/OT Continue pain management Right knee pain--status post right total knee arthroplasty consult her orthopedist Dr. Shepherd. An x-ray showed Postsurgical changes of a total right knee arthroplasty. No fractures are visualized. Hypertension--continue metoprolol tartrate 25 mg by mouth twice a day, f Peripheral neuropathy--continue gabapentin 300 mg by mouth 4 times a day. Depression/anxiety--continue sertraline 100 mg by mouth every evening, and lorazepam 1 mg by mouth 3 times a day when necessary. GERD--change omeprazole 20 mg by mouth daily to pantoprazole 40 mg by mouth daily. Bladder spasm--change Vesicare 5 mg by mouth daily oxybutynin XL 5 mg by mouth daily. DVT prophylaxis (lovenox)
--- NOTE | 2016-07-24 13:09 | ORTHOPEDIC CONSULTATION ---
DATE OF CONSULTATION: 07/24/2016 CHIEF COMPLAINT: Back pain. HISTORY OF PRESENT ILLNESS: This 76-year-old female is well known to me having undergone multilevel lumbar decompression and fusion. She is currently admitted with congestive heart failure. On exam, she is resting comfortably. I was unable to arouse her. Apparently she was quite busy this morning and is on some medication. There is no current imaging. Subsequently, will obtain an x-ray of the lumbar spine today, and we may consider further imaging pending x-ray findings and patient progress.
--- NOTE | 2016-07-24 13:35 | DIAGNOSTIC IMAGING REPORT ---
LUMBAR SPINE 3 VIEWS CLINICAL HISTORY: Chronic low back pain. FINDINGS: AP, lateral, and coned-down views of the lumbar spine are compared to study dated 02/14/[address] scan of the lumbar spine dated 04/14/2016. The skeletal structures are osteopenic. Vertebral body height is maintained throughout the lumbar spine. There is no radiographic evidence of fracture or malalignment. There is minimal anterolisthesis at L4-L5. Alignment is otherwise preserved. There are postoperative changes from laminectomy and posterior fusion seen extending from T11 through S1. Interpedicular screws are present at all levels with the exception of L1. The orthopedic hardware is grossly intact. There is evidence of discectomy at L4-L5. Moderate degenerative disc space narrowing is seen at the remaining imaged spinal levels. Advanced endplate sclerosis at T10-T11 is similar to previous. The bony pelvis is intact as visualized. Sclerotic change is noted in the sacroiliac joints. There is a nonobstructed abdominal bowel gas pattern noting moderate colonic fecal retention. Cholecystectomy clips are observed. IMPRESSION: 1. No acute bony abnormality is identified in the lumbosacral spine. 2. Osteopenia with spondylotic change and extensive postoperative change as above. There has been no significant change from prior studies. Dictated: 07/24/2016 1:27 PM Transcribed: 07/24/2016 1:34 PM [facility]_[place] Electronically signed by: Pelon Ring M.D. 07/24/2016 1:35 PM Dictated Date/Time: 07/24/2016 1:27 PM
[2016-07-24 16:23] LABS: CKMB/CK RATIO 4.8 (0-3.0)
[2016-07-24] MEDS ORDERED: FUROSEMIDE INJ 20 MG in SYRINGE 0 ML IV SCH (17:00)
[2016-07-24] MEDS ORDERED: NITROGLYCERIN OINT 2% 1GM PACKET EXT SCH (17:15)
[2016-07-24] MEDS ORDERED: METOPROLOL TARTRATE 50 MG TAB PO ONE (17:20)
--- NOTE | 2016-07-24 17:26 | ECHOCARDIOGRAM REPORT ---
*NOTICE TO RECEIVING [employer] This information is strictly Confidential and protected under [place] law. [place] law prohibits you from making any further disclosure of this information unless further disclosure is expressly permitted by the written consent of the person to whom it pertains or is authorized by law. A general authorization for the release of medical or other information is not sufficient for this purpose. Hospital accepts no responsibility if the information is made available to any other person, INCLUDING THE PATIENT. Interpretation Summary * Name: VERONICA HASKINS Study Date: 07/24/2016 07:41 AM BP: 137/79 mmHg * Patient Location: [facility] HR: 85 * : 1940 (M/d/yyyy) Gender: Female Height: 63 in * Age: 76 yrs Ethnicity: [place] Weight: 177 lb * Ordering Physician: Olaf Bryant * Referring Physician: Self, Referred * Performed By: Kayleigh Echols RDCS * * Reason For Study: CARDIOMEGALY, CHF * BSA: 1.8 m2 * History: CARDIOMEGALY, CHF * -- Conclusions -- * 1. Small LV cavity size. Severe concentric LVH. * 2. Hyperdynamic LV function. LVEF >70%. No regional wall motion abnormalities. Grade 1 diastolic dysfunction. * 3. Normal RV size and function. * 4. Mild aortic valve sclerosis without stenosis. * 5. Normal estimated PA and RA pressures. * 6. Compared with prior study on 01/03/2012: LVH is now severe. Procedure Details * A complete two-dimensional transthoracic echocardiogram was performed (2D, M-mode, Doppler and color flow Doppler). Left Ventricle * The left ventricular cavity is small. * There is severe concentric left ventricular hypertrophy. * Ejection Fraction = >70 %. * The left ventricle is hyperdynamic. Right Ventricle * The right ventricle is grossly normal size. * The right ventricular systolic function is normal as assessed by tricuspid annular plane systolic excursion (TAPSE) (normal >1.5 cm). Atria * The left atrium is moderately dilated. * Right atrial size is normal. * No ASD detected; PFO is not assessed. Mitral Valve * The mitral valve is grossly normal. * Mitral stenosis is absent. * There is trace mitral regurgitation. Tricuspid Valve * The tricuspid valve is not well visualized. * There is trace tricuspid regurgitation. Aortic Valve * The aortic valve opens well. * Aortic valve sclerosis mild, without significant aortic valvular stenosis. * No hemodynamically significant valvular aortic stenosis. * There is no significant aortic regurgitation. Pulmonic Valve * The pulmonary valve is inadequately visualized, but the Doppler data is adequate for interpretation. * Pulmonic stenosis is absent. * There is no significant pulmonary regurgitation. Great Vessels * The aortic root and proximal ascending aorta are normal sized. Pericardium/Pleural * There is no pericardial effusion. Great Vessels * Normal inferior vena cava size and collapsability with sniff indicates a normal right atrial pressure of 3 mmHg * There is no evidence of pulmonary hypertension. The PA systolic pressure is less than 36 mmHg. Left Ventricular Diastolic Function * Grade I diastolic dysfunction, (abnormal relaxation pattern). MMode 2D Measurements and Calculations IVSd 1.6 cm IVSs 2.3 cm LVIDd 4.3 cm LVIDs 2.6 cm LVPWd 1.4 cm LVPWs 1.7 cm IVS/LVPW 1.2 FS 38.8 % EDV(Teich) 82.8 ml ESV(Teich) 25.2 ml EF(Teich) 69.5 % EDV(cubed) 79.2 ml ESV(cubed) 18.1 ml EF(cubed) 77.1 % % IVS thick 38.2 % % LVPW thick 23.0 % LV mass(C)d 257.6 grams LV mass(C)dI 140.3 grams/m\S\2 LV mass(C)s 221.1 grams LV mass(C)sI 120.4 grams/m\S\2 SV(Teich) 57.6 ml SI(Teich) 31.4 ml/m\S\2 SV(cubed) 61.1 ml SI(cubed) 33.3 ml/m\S\2 Ao root diam 3.0 cm Ao root area 7.2 cm\S\2 LA dimension 3.8 cm LA/Ao 1.3 LVAd ap4 29.1 cm\S\2 LVLd ap4 8.8 cm EDV(MOD-sp4) 80.5 ml EDV(sp4-el) 82.3 ml LVAs ap4 16.8 cm\S\2 LVLs ap4 7.2 cm ESV(MOD-sp4) 36.3 ml ESV(sp4-el) 32.9 ml EF(MOD-sp4) 55.0 % EF(sp4-el) 60.0 % LVAd ap2 29.8 cm\S\2 LVLd ap2 8.2 cm EDV(MOD-sp2) 89.0 ml EDV(sp2-el) 91.8 ml LVAs ap2 15.2 cm\S\2 LVLs ap2 6.6 cm ESV(MOD-sp2) 29.5 ml ESV(sp2-el) 29.6 ml EF(MOD-sp2) 66.8 % EF(sp2-el) 67.7 % LVLd %diff -6.37 % EDV(MOD-bp) 84.4 ml LVLs %diff -9.54 % ESV(MOD-bp) 32.4 ml EF(MOD-bp) 61.6 % SV(MOD-sp4) 44.2 ml SI(MOD-sp4) 24.1 ml/m\S\2 SV(MOD-sp2) 59.5 ml SI(MOD-sp2) 32.4 ml/m\S\2 SV(MOD-bp) 52.0 ml SI(MOD-bp) 28.3 ml/m\S\2 SV(sp4-el) 49.4 ml SI(sp4-el) 26.9 ml/m\S\2 SV(sp2-el) 62.2 ml SI(sp2-el) 33.9 ml/m\S\2 Doppler Measurements and Calculations MV E max ra 61.5 cm/sec MV A max ra 78.1 cm/sec MV E/A 0.79 MV dec time 0.28 sec Ao V2 max 179.1 cm/sec Ao max PG 12.8 mmHg Ao max PG (full) 5.6 mmHg Ao V2 mean 122.6 cm/sec Ao mean PG 7.0 mmHg Ao mean PG (full) 2.7 mmHg Ao V2 VTI 34.1 cm LV V1 max PG 7.2 mmHg LV V1 mean PG 4.3 mmHg LV V1 max 134.5 cm/sec LV V1 mean 94.7 cm/sec LV V1 VTI 27.6 cm SV(Ao) 245.9 ml SI(Ao) 134.0 ml/m\S\2 TR max ra 300.1 cm/sec
[2016-07-24] MEDS: FUROSEMIDE INJ 40 MG in SYRINGE 0 ML IV SCH (18:28)
[2016-07-24] MEDS: METOPROLOL TARTRATE 50 MG TAB PO SCH (20:48)
[2016-07-24] MEDS: LISINOPRIL 5 MG TAB PO SCH (20:48)
[2016-07-24] MEDS: SERTRALINE HCL 100 MG TAB PO SCH (20:48)
[2016-07-25] VITALS (7 sets, daily range): BP systolic 118–164; BP diastolic 62–82; PULSE 54–85; TEMP 36.4–37.2; O2SAT 90–94
--- NOTE | 2016-07-25 07:06 | CONSULTATION REPORT ---
DATE OF CONSULTATION: 07/24/2016 REASON FOR CONSULT: Right knee pain. HISTORY OF PRESENT ILLNESS: The patient is a 76-year-old white female who was admitted by Dr. Bryant last night for shortness of breath and low back pain. Apparently, the patient had been having increasing shortness of breath and also low back pain over the recent past and she was admitted for further care. At that time, she also complained of right knee pain. The patient has had a right total knee arthroplasty by Dr. Shepherd in November 2013. The patient states that she has been having pain off and on with the right knee since that time and that she has had some close calls with almost falling or the knee giving out at times. She states that sometimes it is fine and other times it feels weak and she feels like the knee will give out on her. She states that at one point she did fall on to her knee, approximately a year ago; however, apparently suffered no fractures, etc. at that time. Currently, she states that the pain is minimal at this point in time and is usually whenever she is ambulating. PAST MEDICAL HISTORY: Hypertension, hyperlipidemia, chronic back pain, neuropathy. She has a history of renal calculi. PAST SURGICAL HISTORY: She has had lumbar spine surgery in the past and also right total knee arthroplasty. She has also had surgery on her neck in the past as well. FAMILY AND SOCIAL HISTORY: As per admitting history and physical. MEDICATIONS: Ferrous sulfate 325 mg p.o. daily, furosemide 20 mg p.o. q.a.m., gabapentin 300 mg p.o. q.i.d., metoprolol 25 mg p.o. b.i.d., omeprazole 20 mg p.o. daily, potassium chloride 20 mEq p.o. daily, Zoloft 100 mg p.o. q.p.m., VESIcare 5 mg p.o. daily, lorazepam 1 mg p.o. t.i.d. p.r.n. for anxiety. ALLERGIES: NKDA. REVIEW OF SYSTEMS: As per admitting history and physical. PHYSICAL EXAMINATION: GENERAL: On walking into the room, the patient is sitting up in her bed and she is eating her lunch. She is awake and alert and oriented to person and place and is otherwise in no acute distress and is pleasant and cooperative. EXTREMITIES: On examination of her right lower extremity, there is a well-healed incision from her previous right total knee arthroplasty done in 2013. There is no effusion that I can appreciate at this point in time and there is no erythema or overt warmth to the knee compared to the left. She is nontender on palpation over the patella and over the medial and lateral aspects of the knee and at this time she has good range of motion. She does have some hyperextension noted of the knee when in extension and flexion to approximately 90 degrees without any severe pain. She is noted to be stable with medial and lateral collaterals within her hyperextension. However, at approximately 30 degrees, she does have some mild to moderate laxity of the lateral collateral. This does not appear to cause her any discomfort whenever testing the collateral stability. She has no crepitus during range of motion and again range of motion does not seem to cause her any pain. She has good quad strength and is able to do a straight leg raise on her own without difficulty. ASSESSMENT: Chronic right knee pain with some lateral collateral mild to moderate instability at 30 degrees of flexion. PLAN: X-rays were reviewed and showed the components to be in alignment and no areas of loosening. Ridgeway view of the patella shows patella in the patellofemoral groove without any lateral or medial displacement. No fractures or dislocations are noted at this time. Currently, the patient is discussing about the knee giving out on her at certain times which may be likely due to her lateral collateral instability that she is having, especially when walking. She has likely loosened up over time since she has had the right total knee arthroplasty performed, however at this time this will not require any emergent surgery to correct. Plans will be to apply an immobilizer to the right knee and have her ambulate with the immobilizer on. Weightbearing as tolerated. She could then follow up with Dr. Shepherd in the office to discuss any further surgical plans or needs for her right knee. She obviously has no signs of infection at this time and again can be seen by Dr. Shepherd after discharge in the office as an outpatient. HARSHIL
--- NOTE | 2016-07-25 07:11 | CARDIOLOGY CONSULTATION REPORT ---
DATE OF CONSULTATION: 07/24/2016 REASON FOR CONSULTATION: 1. Elevated troponin I level. 2. Acute diastolic CHF. HISTORY OF PRESENT ILLNESS: Mrs. 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 She also noticed some increased shortness of breath over the same timeframe, but denies any episodes of nausea, vomiting, or diaphoresis. Additionally, she was complaining of hip and knee pain as well and because she was so uncomfortable, she came to the Emergency Room. Initial cardiac enzymes were negative; however, subsequent troponin I level increased to 0.261 ng/mL. Her EKG has not shown any acute changes, and she has been hemodynamically stable since being admitted. The patient is a very poor historian. She denies any prior cardiac history or events. At the present time, she is being seen in room 286, bed 1, and is resting comfortably in a supine position. She currently denies any chest or thoracic back pain. She is mildly short of breath. She has not noticed any recent edema, and she denies any recent weight gain, although she does not routinely weigh herself. MEDICATIONS: 1. Sertraline 100 mg daily. 2. Lasix 20 mg IV b.i.d. 3. Neurontin 300 mg q.i.d. 4. Lopressor 25 mg b.i.d. 5. KCl 20 mEq daily. 6. Protonix 20 mg daily. 7. Feosol 325 mg daily. 8. Ditropan XL. 9. Morphine sulfate 2 to 4 mg IV p.r.n. 10. Sublingual nitroglycerin p.r.n. 11. Ativan 1 mg p.o. t.i.d. p.r.n. 12. Milk of magnesia p.r.n. 13. Zofran p.r.n. 14. Ambien p.r.n. for sleep. ALLERGIES: NKDA. PAST MEDICAL HISTORY: 1. Moderate concentric LVH on echocardiogram in 2011 --- Now Severe LVH.. 2. Longstanding hypertension. 3. Dyslipidemia. 4. DJD status post right TKA. 5. GERD. 6. History of depression/anxiety. 7. History of cervical spondylosis with myelopathy. 8. History of lumbar degenerative disk disease status post multilevel fusion with placement of rods. 9. Peripheral neuropathy. 10. She specifically denies any history of CAD, rheumatic fever, or cardiac dysrhythmias. No history of stroke or ministroke. No prior cardiac events to her knowledge. SOCIAL HISTORY: She is a nonsmoker. FAMILY HISTORY: Noncontributory. PHYSICAL EXAMINATION: VITAL SIGNS: As listed. Pulse rate is 80. GENERAL: The patient is in no acute distress. HEENT: Head is atraumatic, normocephalic. EOMs intact. Sclerae anicteric. Faces symmetric. No perioral cyanosis. Mucous membranes moist. NECK: Without thyromegaly or adenopathy. Jugular venous pressure is elevated approximately one-half way to the angle of the jaw, positive hepatojugular reflux. CHEST AND LUNGS: Bibasilar crackles over the lower third of bilateral lung chong. CARDIOVASCULAR: S1 and S2 are regular, with an S4 gallop. PMI is laterally displaced. No lifts, heaves, or thrills. No abdominal aortic or renal bruits. ABDOMEN: Bowel sounds present. EXTREMITIES: With trace pedal edema bilaterally. Intact radial and posterior tibial pulses bilaterally. NEUROLOGIC: The patient is awake and interactive. Answers questions appropriately but slowly. Follows commands. EKG on admission shows a normal sinus rhythm with an incomplete RBBB, left anterior fascicular block. No ST segment or T wave abnormalities noted. Echocardiogram performed earlier today shows hyperdynamic LV systolic functions and LVEF of greater than 70%, no regional wall motion abnormalities. There is severe concentric LVH with diastolic dysfunction. Aortic valve sclerosis without stenosis. Normal RV systolic function. LABORATORY DATA: White blood cell count 7.88. Hemoglobin is 13.4 g/dL, hematocrit 40.6%, platelet count 213,000. Sodium is 144 mmol/L, potassium 3.9 mmol/L, BUN 20 mg/dL, creatinine 0.79 mg/dL. Random glucose 121 mg/dL, magnesium level 2.3 mg/dL. LFTs are unremarkable. Total CKs are 69, 57, 96 with respect to CK-MBs of 3.3, 2.5, and 3.0 ng/mL. Troponin I levels are 0.261, 0.037, and less than 0.015 ng/mL. Pro-BNP is elevated at greater than 6000. ASSESSMENT: 1. Elevated troponin I, likely secondary to demand ischemia related to severe concentric left ventricular hypertrophy in the presence of hypervolemia/acute diastolic congestive heart failure. 2. Acute on chronic diastolic heart failure. 3. Hypertension. 4. Dyslipidemia. 5. Gastroesophageal reflux disease. 6. Degenerative joint disease. 7. Depression/anxiety. 8. Multiple orthopedic complaints. PLAN: 1. This does not appear to be an acute coronary syndrome. 2. Recommend titrating Metoprolol Tartrate to 50 mg t.i.d. to increase left ventricular diastolic filling time. 3. Begin Lisinopril 5 mg daily. 4. Increase Lasix to 40 mg IV b.i.d. 5. Maintain a low-sodium diet. 6. Monitor daily weights, I's and O's. 7. Could consider adding nitrates as well if necessary. 8. We will continue to closely follow throughout her hospitalization and make further recommendations pending her clinical course. Thank you for asking us to see this patient in consultation. HARSHIL
[2016-07-25 07:27] LABS: BASO % 0.5 %; BASO ABS # 0.03 K/uL (0-0.2); COMPLETE YES; EOS % 6.1 %; HEMATOCRIT 42.7 % (37-47); IG% 0.4 %; LYMPH ABS # 0.97 K/uL (1.2-3.4); MEAN CELL VOLUME 93.4 fL (80-100); MEAN CORPUSCULAR HEMOGLOBIN 30.6 pg (25-34); MEAN CORPUSCULAR HGB CONC 32.8 g/dl (32-36); MEAN PLATELET VOLUME 9.4 fL (7.4-10.4); MONO % 8.8 %; NEUT % 67.2 %; PLATELET COUNT 207 K/uL (130-400); RED BLOOD COUNT 4.57 M/uL (4.2-5.4)
[2016-07-25 08:02] LABS: BUN/CREATININE RATIO 33.3 (10-20); CALCIUM 8.7 mg/dl (8.5-10.1); CREATININE 0.89 mg/dl (0.60-1.20); MAGNESIUM 2.3 mg/dl (1.8-2.4); POTASSIUM 3.9 mmol/L (3.5-5.1)
[2016-07-25 08:03] LABS: ALB/GLOB RATIO 1.4 (0.9-2)
[2016-07-25] MEDS: FUROSEMIDE INJ 40 MG in SYRINGE 0 ML IV SCH ×2 (08:24→17:00)
[2016-07-25] MEDS: GABAPENTIN 300 MG CAP PO SCH ×3 (08:25→17:23)
[2016-07-25] MEDS: METOPROLOL TARTRATE 50 MG TAB PO SCH (08:25)
[2016-07-25] MEDS: DOCUSATE SODIUM 100 MG CAP PO SCH (08:25)
[2016-07-25] MEDS: FERROUS SULFATE 325 MG TAB PO SCH (08:26)
[2016-07-25] MEDS: PANTOprazole SOD 40 MG TAB PO SCH (08:26)
[2016-07-25] MEDS: OXYBUTYNIN CHLORIDE 5 MG TABCR PO SCH (08:26)
[2016-07-25] MEDS: LISINOPRIL 5 MG TAB PO SCH (08:26)
[2016-07-25] MEDS: POTASSIUM CHLORIDE 20 MEQ TABCR PO SCH (08:27)
[2016-07-25] MEDS ORDERED: METOPROLOL SUCC 50MG EXT REL TAB PO ONE (11:30)
--- NOTE | 2016-07-25 11:46 | CARDIOLOGY PROGRESS NOTE ---
DATE: 07/25/2016 HISTORY OF PRESENT ILLNESS: Mrs. Renteria is a 76-year-old obese white female with a history of longstanding hypertension, dyslipidemia, DJD, GERD, depression/anxiety and now has severe concentric LVH with chronic diastolic CHF. We were consulted because of a mild elevation of her troponin I level. Echocardiogram which was done yesterday confirmed the presence of severe concentric LVH with diastolic dysfunction, aortic valve sclerosis without stenosis, and normal RV systolic function. No RWMA's. After seeing her yesterday, we started her on Lopressor 50 mg p.o. t.i.d., Lisinopril 5 mg daily, and her IV Lasix was increased to 40 mg b.i.d. She has had good diuretic response with this, and has been urinating frequently (although her I&O's do not reflect this because they are not accurate). Nonetheless, she is feeling better than she did on admission, and is less short of breath. She further denies any recurring thoracic back pain, and denies any chest pain or heaviness or tightness. She denies any neck, jaw, back or arm pain. Breathing is approaching baseline. She denies any orthopnea or PND. She has not had any palpitations, syncope, or near syncope. PHYSICAL EXAMINATION: VITAL SIGNS: Temperature is 36.4 degrees Celsius, pulse 56 and regular, respiratory rate is 18, blood pressure has ranged between 118/64 and 164/82, and SPO2 is 90-93% on room air. GENERAL: The patient is in no acute distress. HEENT: Head is atraumatic and normocephalic. EOMs intact. Sclerae are anicteric. Face is symmetric. No perioral cyanosis. Mucous membranes moist. NECK: Without thyromegaly or adenopathy. Jugular venous pressure is just above the clavicle sitting upright. CHEST AND LUNGS: With diminished breath sounds in the left base, otherwise faint crackles at both bases. CARDIOVASCULAR: S1 and S2 are regular with an S4 gallop. She is bradycardic. PMI is laterally displaced. No lifts, heaves, or thrills. No abdominal, aortic or renal bruits. ABDOMEN: Bowel sounds present. EXTREMITIES: Without edema. Intact radial and posterior tibial pulses bilaterally. NEUROLOGIC: The patient is awake, alert and oriented. Pleasant and cooperative. Answers questions appropriately. Speech is clear. Normal movement of bilateral upper and lower extremities. DATA: EKG performed shows a sinus bradycardia at the rate of 53 beats per minute with a right bundle branch block, left anterior fascicular block, moderate voltage criteria for LVH. No change when compared to 07/24/2016 tracing. Telemetry monitoring reveals sinus bradycardia to normal sinus rhythm. No pauses. No significant dysrhythmias or ectopy. LABORATORIES: White blood cell count is 5.70, hemoglobin 14.0 g/dl, hematocrit 42.7% and platelet count is 207,000. Sodium is 144 mmol/L, potassium 3.9 mmol/L, BUN 13 mg/dL and creatinine 0.9 mg/dL. Serum magnesium level normal at 2.3. ProBNP was 6255 mcg/mL on admission. ASSESSMENT: 1. Severe concentric LVH with diastolic dysfunction. 2. Elevated troponin level, likely demand ischemia secondary to severe concentric left ventricular hypertrophy in the presence of hypervolemia. 3. Acute on chronic diastolic CHF, improving. 4. Multiple orthopedic complaints. 5. Normal right ventricular size and systolic function. 6. Hypertension. 7. Dyslipidemia. 8. Diagnoses as mentioned above. PLAN: 1. The patient appears to be improving from a cardiac standpoint. 2. 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 3. Convert from Lopressor to Toprol-XL 150 mg daily. 4. Continue Lisinopril 5 mg daily. 5. On discharge, convert to oral Lasix 40 mg daily. 6. Would recommend a basic metabolic panel and serum magnesium level within 1 week of discharge. 7. Discussed the importance of a 2 grams low sodium diet. 8. Monitor daily body weights at home. 9. We will plan on following up with the patient on 08/03/2016 at 2:00 p.m. with Rajendra Limon PA-C and Dr. Bronson. Will make further treatment recommendations at that time. 10. The patient is stable from a cardiac standpoint for discharge to home. [facility] CENTERNoemi
[2016-07-25] MEDS ORDERED: FURO40TA3 PO (15:05)
[2016-07-25] MEDS ORDERED: TRAM-453 PO (15:05)
[2016-07-25] MEDS ORDERED: TPRSR50 PO (15:05)
[2016-07-25] MEDS ORDERED: OXYC-57 PO (15:05)
[2016-07-25] MEDS ORDERED: LSN5 PO (15:05)
[2016-07-25] MEDS ORDERED: POTA1CAP2 PO (15:05)
--- NOTE | 2016-07-25 17:20 | Discharge Summary ---
Discharge Summary Admission Date: Jul 23, 2016 at 22:27 Discharge Date: Jul 25, 2016 Discharge Disposition: Home with services Problems/Secondary Diagnoses: he patient is a 76-year-old female who presents to ED with worsening back pain for the past week and shortness of breath. She has Hx of brendon placement in her lumbosacral spine by Dr. Randle from orthopedics in the past. She also complains of right knee pain, and has has a history of a right total knee arthroplasty by Dr. Shepherd in the past Shortness of breath- Likely acute on chronic diastolic CHF exacerbation (Diastolic dysfunction based on Echo in 2011) Low back pain with history of brendon placement Right knee pain--status post right total knee arthroplasty Hypertension- Peripheral neuropathy- Depression/anxiety- GERD- Bladder spasm- Clinically suspected obstructive sleep apnea, needs sleep study as an out patient Immunizations: Have You Had Influenza Vaccine: N/A History of Tetanus Vaccine?: No History of Pneumococcal: Yes Pneumococcal Date: Feb 11, 2013 History of Hepatitis B Vaccine: No Medication Reconciliation New Medications: Furosemide (Lasix) 40 Mg Tab 1 TAB PO DAILY for 30 Days, #30 TAB 5 Refills Oxycodone/Acetaminophen 5MG/325MG (Percocet 5MG/325MG) Tab 1 TAB PO TID PRN for Pain for 30 Days, #90 TAB PAIN Potassium Chloride (Potassium Chloride Er) 10 Meq Cap 1 CAP PO DAILY for 30 Days, #30 CAP 1 Refill Tramadol Hcl (Ultram) 50 Mg Tab 1 TAB PO BID PRN for Pain for 30 Days, #60 TAB Lisinopril (Lisinopril) 5 Mg Tab 5 MG PO QAM for 30 Days, #30 TAB Metoprolol Succinate (Metoprolol Succinate ER) 50 Mg Tabcr 150 MG PO QAM for 30 Days, #90 TAB Continued Medications: Ferrous Sulfate (Iron) 325 Mg Tab 325 MG PO DAILY Gabapentin (Neurontin) 300 Mg Cap 300 MG PO QID Lorazepam (Ativan) 1 Mg Tab 1 MG PO TID PRN for Anxiety, TAB Omeprazole (Prilosec) 20 Mg Capcr 20 MG PO DAILY Sertraline (Zoloft) 100 Mg Tab 100 MG PO QPM, TAB Solifenacin (Vesicare) 5 Mg Tab 5 MG PO DAILY, TAB Discontinued Medications: Furosemide (Lasix) 20 Mg Tab 20 MG PO QAM Metoprolol Tartrate (Lopressor) 25 Mg Tab 25 MG PO BID Potassium Chloride (Micro-K Ext Rel) 20 Meq Cap 20 MEQ PO DAILY Referrals At Discharge Follow up Referrals: Sound Effects Technician Referral - Within 3 Months with George Bronson M.D. Orthopedics Referral - Within 1-2 Weeks with Pavel Randle D.O. Orthopedics Referral - Within 1-2 Weeks with Gil Shepherd M.D. Discharge Exam Review of Systems: Constitutional: No chills, No fever Eyes: No worsening of vision ENT: No hearing loss, No unusual epistaxis Respiratory: No cough, No shortness of breath, No sputum Cardiovascular: No chest pain Abdomen: No diarrhea, No nausea Musculoskeletal: + joint pain, No swelling Genitourinary - Female: No dysuria Genitourinary - Male: No dysuria, No hematuria Neurologic: No memory loss, No paralysis Psychiatric: No anhedonism, No depression symptoms Endocrine: No fatigue Integumentary: No rash Hospital Course The patient is a 76-year-old female who presents to ED with worsening back pain for the past week and shortness of breath. She has Hx of brendon placement in her lumbosacral spine by Dr. Randle from orthopedics in the past. She also complains of right knee pain, and has has a history of a right total knee arthroplasty by Dr. Shepherd in the past she was admitted to [facility] for her Shortness of breath- seen by adobe maker Likely acute on chronic diastolic CHF exacerbation (Diastolic dysfunction based on Echo in 2011) 2-D echocardiogram was done, results below: * 1. Small LV cavity size. Severe concentric LVH. * 2. Hyperdynamic LV function. LVEF >70%. No regional wall motion abnormalities. Grade 1 diastolic dysfunction. * 3. Normal RV size and function. * 4. Mild aortic valve sclerosis without stenosis. * 5. Normal estimated PA and RA pressures. * 6. Compared with prior study on 01/03/2012: LVH is now severe. Initially started on lasix 40mg IV BID but for fear of worsening renal function and pump in BUN, changed lasix to 20mg IV BID then switched to 40mg po daily upon discharge also continued potassium chloride 20 mEq by mouth daily. for Low back pain with history of brendon placement consult Dr. Randle her orthopedic surgeon.appreciated, ordered Xray that did not show any loose prosthesis, he will see her in the office in 2 weeks pain was controlled with pain meds for her Right knee pain--status post right total knee arthroplasty consult her orthopedist Dr. Shepherd. An x-ray showed Postsurgical changes of a total right knee arthroplasty. No fractures are visualized. ordered knee stabilizer , will see her in the office in 2 weeks also ordered PT/OT Hypertension--switched metoprolol tartrate 25 mg BID to toprol XL 50mg po daily , did not tolerate the higher dose started on admission Peripheral neuropathy--continue gabapentin 300 mg by mouth 4 times a day. Depression/anxiety--continued sertraline 100 mg by mouth every evening, and lorazepam 1 mg by mouth 3 times a day when necessary. GERD--continued omeprazole 20 mg daily also was found to have Clinically suspected obstructive sleep apnea, needs sleep study as an out patient today found to be within acceptable medical stability for discharge and will have home health PT/OT This includes examination of the patient, discharge planning, medication reconciliation, and communication with other providers. Discharge Instructions Please refer to the electronic Patient Visit Report (Discharge Instructions) for additional information.
[2016-07-26] MEDS ORDERED: METOPROLOL SUCC 50MG EXT REL TAB PO SCH (09:00)
== END 2016-07-25 18:23 | disposition home health service (06) ==
LOC: ENRESERVTM → ENRESERVDT → C.EDB 18:42 → C.MED 22:27
PROVIDERS: ADMIT Hospitalist; ATTEND Hospitalist
DX: M54.5 Low back pain (principal); E78.5 Hyperlipidemia, unspecified; G62.9 Polyneuropathy, unspecified; G89.18 Other acute postprocedural pain; I10 Essential (primary) hypertension; I50.33 Acute on chronic diastolic (congestive) heart failure; K21.9 Gastro-esophageal reflux disease without esophagitis; K44.9 Diaphragmatic hernia without obstruction or gangrene; M16.11 Unilateral primary osteoarthritis, right hip; M81.0 Age-related osteoporosis without current pathological fracture; Z96.651 Presence of right artificial knee joint; M25.561 Pain in right knee; F32.9 Major depressive disorder, single episode, unspecified; F41.9 Anxiety disorder, unspecified; N32.89 Other specified disorders of bladder

== ENCOUNTER 2019-10-04 20:40 | Inpatient (IN) ==
[2019-10-04] MEDS ORDERED: TRAMADOL HCL 50 MG TABLET PO STA (21:12)
[2019-10-04] MEDS ORDERED: ACETAMINOPHEN 1,000 MG/100 ML VIAL IV STA (21:12)
[2019-10-04] MEDS ORDERED: SODIUM CHLORIDE 0.9% 500 ML IV SCH (21:15)
[2019-10-04] MEDS ORDERED: ALBUT/IPRATROP 3MG/0.5MG NEB 3 ML VIAL NEB STA (21:20)
--- NOTE | 2019-10-04 21:20 | Emergency Department Note ---
Impression & Plan Hypoxia, CHF (congestive heart failure), Anemia, Acute hyponatremia, Acute pain of right hip ED Provider Note NAME: VERONICA HASKINS AGE: 79 SEX: F : 1940 ARRIVES VIA: Ambulance INFORMANT: [Patient][ems, nurses] ED PROVIDER(S): [Pelon Cha MD] CHIEF COMPLAINT: Right hip pain HISTORY OF PRESENT ILLNESS: The patient is a 79-year-old female who presents to the ER with severe right hip pain that is ongoing and worse with sitting. The patient has had this issue for a long time. The pain was worse today so she called the ambulance. According to the EMS crew, the patient called 911 today at least 5 times. They finally brought her on this last call. The patient is a poor historian. She states that she has not fallen. She is not using anything for pain at home. She used to use tramadol but she no longer has this medication. She denies being short of breath. There lovell been no fever, no vomiting, there are no urinary complaints. Looking at the patient's old records. She was here 4 times already this month. She had testing with her visits. During one visit she had a CT of her abdomen and right hip. Nothing was found of concern on either study. During 1 visit there was concern that she was seeking narcotics. Case management has been involved. Apparently, the family has become quite frustrated at her frequent calls to 911. They have contacted the office of aging but because of the coronavirus outbreak, they cannot do a home evaluation. REVIEW OF SYSTEMS: See HPI for pertinent positives and negatives. A total of ten systems were reviewed and were otherwise negative. PMHx/PSHx: See Below SOCIAL HISTORY: See Below. PHYSICAL EXAM: GENERAL: Patient is in mild distress. Anxious. HEENT: No acute trauma, normocephalic atraumatic, mucous membranes moist, no nasal congestion, no scleral icterus. NECK: No stridor, no adenopathy, no meningismus, trachea is midline. LUNGS: Wheezing bilaterally, no respiratory distress, breath sounds are equal. HEART: 2/6 systolic murmur, regular rate and rhythm. ABDOMEN: Soft, nontender, bowel sounds positive, no hernias, no peritonitis. EXTREMITIES: No concerning edema. The patient does have pain to palpate the area of the right lateral hip. There is no gross deformity. She is moving both legs equally when we talk. NEUROLOGIC: Oriented x 3, no acute motor or sensory deficits, no focal weakness. SKIN: No rash, no jaundice, no diaphoresis. DIFFERENTIAL DIAGNOSIS: Muscular strain, fracture, dislocation, DVT, joint effusion, infection, soft tissue injury, vascular compromise, pneumonia, bronchitis, dehydration, cellulitis, CHF, as well as other pathologies. EMERGENCY DEPARTMENT COURSE/PROCEDURES: ECG: Indication is shortness of breath. There is a sinus bradycardia with a rate of 54. There is a right bundle branch block. There is no ST elevation, no PVCs. QTC is 440. Compared to an EKG from 30 September 2019, there is no significant change. Continuous Cardiac Monitoring: An order was placed for continuous cardiac monitoring. The monitor shows a rate of 54 with sinus bradycardia. MEDICAL DECISION MAKING: There is no leukocytosis. The patient is anemic with a hemoglobin of 9.4. This is a drop for her when looking back at recent values. Sodium is 128, this is low and also a drop for her looking back at previous values. No kidney failure. No worrisome liver enzyme elevation. BNP was quite elevated consistent with fluid overload. Chest film does show CHF. EKG shows a sinus bradycardia, no acute ischemia. Cardiac enzyme testing x1 is not consistent with acute cardiac injury. Urinalysis shows potential infection, urine culture is pending. Of note, the patient denies urinary symptoms. Right hip film does not show any fracture or significant arthritis findings. The patient presents with right hip pain. She was noticed to be somewhat h ypoxic at times, patient was wheezing on exam. She was given a DuoNeb, she received IV Tylenol, IV Lasix, IV saline and oral tramadol. The patient states that she is feeling improved. She is more comfortable, she does not seem to be anxious or upset anymore. The patient has a heart history and does appear to be in CHF. She is hyponatremic, anemic. She has an elevation to her BNP and has heart failure on x-ray. Diuresis is needed. I do not feel safe sending her home. Of note, at this point, the cause for her hip pain is unclear but does appear chronic when looking back at previous testing. Past Med/Surg History Medical History Cervical spondylosis with myelopathy (Acute 01/02/12) CHF (congestive heart failure) (Inactive) Chronic right SI joint pain (Acute) Hip pain, chronic (Inactive) History of back surgery (Acute) Restless leg (Inactive) Surgical History History of back surgery History of neck surgery Social History Preferred Language: Bangladeshi marital status: current occupational status: retired Feels Safe at Home: Yes Smoking Status: Never smoker Allergies Allergies Allergy/AdvReac Type Severity Reaction Status Date / Time celecoxib [From Celebrex] Allergy Unknown CAN'T Verified 10/04/19 21:27 REMEMBER duloxetine Allergy Unknown CAN'T Verified 10/04/19 21:27 REMEMBER paroxetine [From Paxil] Allergy Unknown CAN'T Verified 10/04/19 21:27 REMEMBER propoxyphene Allergy Unknown CAN'T Verified 10/04/19 21:27 [From Darvocet-N 100] REMEMBER rofecoxib Allergy Unknown CAN'T Verified 10/04/19 21:27 REMEMBER Home Meds Home Medications Medication Instructions Recorded Confirmed gabapentin 400 mg PO QID 10/27/18 10/04/19 lisinopril 40 mg PO QAM 10/27/18 10/04/19 potassium chloride 20 meq PO QAM 10/27/18 10/04/19 sertraline 100 mg PO HS 10/27/18 10/04/19 diclofenac sodium 1 % topical gel 2 g TOPICAL ONCE PRN gm 04/24/19 10/04/19 docusate sodium 100 mg capsule 100 mg PO BID PRN cap 04/24/19 10/04/19 amlodipine 10 mg PO QAM 05/18/19 10/04/19 hydralazine 25 mg PO BID 09/11/19 10/04/19 calcium carbonate-vitamin D3 1 tab PO BID 09/17/19 10/04/19 [Calcium 600 + D(3)] ibuprofen 400 mg PO Q6H PRN 09/17/19 10/04/19 metoprolol succinate 200 mg PO QAM 09/17/19 10/04/19 oxybutynin chloride 5 mg PO QDL 09/17/19 10/04/19 omeprazole 40 mg PO DAILY 09/26/19 10/04/19 ondansetron HCl [Zofran] 4 mg PO Q6H PRN 09/26/19 10/04/19 tramadol 50 mg PO DIRECTED PRN 09/26/19 10/04/19 Previous Rx's Medication Instructions Recorded dicyclomine 20 mg PO TID PRN #9 tab 09/17/19 furosemide 80 mg tablet 80 mg PO QAM #90 tab 09/22/19 Results & Data (ED) Vital Signs Vital Signs - 24 hr 10/04/19 20:47 10/04/19 21:24 10/04/19 21:34 Temperature 36.8 C Temperature Source Oral Pulse Rate 62 Pulse Rate [Finger] 62 Respiratory Rate 20 22 Respiratory Effort / Characteristics Non-Labored Spontaneous Respiratory Depth Normal Blood Pressure 136/82 Blood Pressure [Right Arm] 153/88 H Blood Pressure Mean 100 Blood Pressure Mean [Right Arm] 109 Pulse Oximetry 87 L 95 95 Oxygen Delivery Method Room Air Nasal Cannula Nasal Cannula Oxygen Flow Rate 2 2 Sepsis Action Taken by Nursing No Action Required 10/04/19 21:47 10/04/19 22:25 Temperature Temperature Source Pulse Rate Pulse Rate [Finger] 56 L 54 L Respiratory Rate 22 18 Respiratory Effort / Characteristics Spontaneous Respiratory Depth Blood Pressure Blood Pressure [Right Arm] 152/70 H Blood Pressure Mean Blood Pressure Mean [Right Arm] 97 Pulse Oximetry 100 95 Oxygen Delivery Method Nasal Cannula Nasal Cannula Oxygen Flow Rate 2 2 Sepsis Action Taken by Prison Medications Current Medication List: was personally reviewed by me Laboratory Data Attestation: I reviewed the patient's lab results. Result diagrams: 10/04/19 21:25 10/04/19 21:25 Lab Results 10/04/19 10/04/19 10/04/19 Range/Units 21:25 21:25 21:30 WBC 6.42 (4.8-10.8) K/uL RBC 3.15 L (4.2-5.4) M/uL Hgb 9.4 L (12.0-16.0) g/dL Hct 29.1 L (37-47) % MCV 92.4 (80-100) fL MCH 29.8 (25-34) pg MCHC 32.3 (32-36) g/dL RDW Std Deviation 50.1 H (36.4-46.3) fL RDW Coeff of Idania 14.8 H (11.5-14.5) % Plt Count 240 (130-400) K/uL MPV 9.1 (7.4-10.4) fL Immature Gran % (Auto) 0.0 % Neut % (Auto) 81.3 % Lymph % (Auto) 6.4 % Ada % (Auto) 9.0 % Eos % (Auto) 3.0 % Baso % (Auto) 0.3 % Immature Gran # (Auto) 0.00 (0.00-0.02) K/uL Neut # (Auto) 5.22 (1.4-6.5) K/uL Lymph # (Auto) 0.41 L (1.2-3.4) K/uL Ada # (Auto) 0.58 (0.11-0.59) K/uL Eos # (Auto) 0.19 (0-0.5) K/uL Baso # (Auto) 0.02 (0-0.2) K/uL Absolute Nucleated RBC 0.00 (0-0) K/uL Nucleated RBC % (auto) 0.0 % Sodium 128 L (136-145) mmol/L Potassium 5.0 (3.5-5.1) mmol/L Chloride 92 L (98-107) mmol/L Carbon Dioxide 31 (21-32) mmol/L Anion Gap 5.0 (3-11) BUN 19 H (7-18) mg/dl Creatinine 0.95 (0.6-1.2) mg/dl Est Cr Clr Drug Dosing 52.9 ml/min Est GFR ( Amer) 67.0 Est GFR (Non-Af Amer) 57.8 BUN/Creatinine Ratio 20.0 (10-20) Glucose 102 H (70-99) mg/dl Calcium 8.7 (8.5-10.1) mg/dl Total Bilirubin 0.4 (0.2-1) mg/dl AST 17 (15-37) U/L ALT 28 (12-78) U/L Alkaline Phosphatase 73 (45-117) U/L Troponin I < 0.015 (0-0.045) ng/ml NT-Pro-B Natriuret Pep 7463 H (0-1800) pg/ml Total Protein 6.4 (6.4-8.2) gm/dl Albumin 3.5 (3.4-5.0) gm/dl Globulin 2.9 (2.5-4.0) gm/dl Albumin/Globulin Ratio 1.2 (0.9-2) Urine Color Yellow Urine Appearance Clear (Clear) Urine pH 7.0 (4.5-7.5) Ur Specific [place] 1.014 (1.000-1.030) Urine Protein Negative (Negative) Urine Glucose (UA) Negative (Negative) Urine Ketones Negative (Negative) Urine Blood Negative (Negative) Urine Nitrite Positive A (Negative) Urine Bilirubin Negative (Negative) Urine Urobilinogen Negative (Negative) Ur Leukocyte Esterase Trace H (Negative) Urine WBC (Auto) 1-5 (0-5) /hpf Urine RBC (Auto) 0-4 (0-4) /hpf U Hyaline Cast (Auto) 0 (0-5) /lpf U Epithel Cells (Auto) 10-20 H (0-5) /lpf Urine Bacteria (Auto) 4+ H (Negative) Administered Medications Discontinued Medications Albuterol (Duoneb) 3 ml NEB NOW STA Stop: 10/04/19 21:21 Last Admin: 10/04/19 21:47 Dose: 3 ml Documented by: [id number] Furosemide (Lasix) 60 mg IV NOW STA Stop: 10/04/19 22:11 Last Admin: 10/04/19 22:25 Dose: 60 mg Documented by: [id number] Sodium Chloride (Nss) 500 mls @ 999 mls/hr IV .Q31M RADHA Stop: 10/04/19 21:45 Last Infusion: 10/04/19 22:01 Dose: 0 mls/hr Documented by: [id number] Admin: 10/04/19 21:31 Dose: 999 mls/hr Documented by: [id number] Acetaminophen (Ofirmev) 1,000 mg in 100 mls @ 400 mls/hr IV NOW STA Stop: 10/04/19 21:26 Last Infusion: 10/04/19 21:46 Dose: 0 mls/hr Documented by: [id number] Admin: 10/04/19 21:31 Dose: 400 mls/hr Documented by: [id number] Tramadol HCl (Ultram) 50 mg PO NOW STA Stop: 10/04/19 21:13 Last Admin: 10/04/19 21:18 Dose: 50 mg Documented by: [id number] Imaging Data Radiologist's Impression: XR chest 1V portable CLINICAL HISTORY: 79 years-old Female presenting with weakness. TECHNIQUE: Portable upright AP view of the chest was obtained. COMPARISON: 09/30/2019. FINDINGS: Atherosclerosis of the aortic arch. Cardiopericardial silhouette markedly enlarged. Added density of the lungs with a basilar predominance. Chronic elevation of the left hemidiaphragm. Suspected underlying left pleural effusion. Pulmonary vascular prominence. Interstitial prominence. No pneumothorax. Cervical and thoracolumbar fusion hardware. Degenerative changes of the spine. Suspected osteopenia. Upper abdomen normal. IMPRESSION: 1. Marked cardiomegaly with volume overload and congestive change. This has slightly worsened from prior. Mild degree of pulmonary edema may be present. 2. Chronic elevation of the left hemidiaphragm with suspected underlying left pleural effusion and atelectasis. XR hip RT 2V w pelvis CLINICAL HISTORY: 79 years-old Female presenting with right hip pain, questionable fall. TECHNIQUE: Single frontal view of the pelvis and frontal and crosstable lateral views of the right hip were obtained. COMPARISON: 10/27/2018. FINDINGS: Posterior lumbar fusion hardware. Extensive osseous fusion of the lower lumbar spine. Sacroiliac joints, pubic symphysis, and hip joints congruent. Sacrum is grossly intact though suboptimally evaluated. Bony pelvis intact. Femoral necks grossly intact bilaterally. Suboptimal crosstable lateral view of the right hip with nonvisualization of the hip joint. Allowing for this, the right hip is grossly normal appearing. No radiographic soft tissue abnormality. IMPRESSION: Allowing for image quality, no convincing evidence of a pelvic or right hip fracture. Blood Pressure Blood Pressure Findings: Elevated blood pressure Blood Pressure Disposition: further management by hospitalist Discharge Plan Visit Data Chief Complaint: Hip Pain ED Provider: Pelon Cha Discharge Problem: Hypoxia, CHF (congestive heart failure), Anemia, Acute hyponatremia, Acute pain of right hip Patient Disposition: Being Evaluated by Hospitalist Forms Stand Alone Forms: My sones Prescriptions Prescriptions: No Action furosemide 80 mg tablet 80 mg PO QAM Qty: 90 RF: 3 docusate sodium 100 mg capsule 100 mg PO BID PRN (Reason: Constipation) RF: 0 diclofenac sodium 1 % gel 2 g topical ONCE PRN (Reason: anti-inflammatory) RF: 0 amlodipine 10 mg tablet 10 mg PO QAM RF: 0 calcium carbonate-vitamin D3 [Calcium 600 + D(3)] 600 mg(1,500mg) -200 unit Tablet 1 tab PO BID RF: 0 ibuprofen 200 mg Tablet 400 mg PO Q6H PRN (Reason: Pain) RF: 0 oxybutynin chloride 5 mg tablet extended release 24hr 5 mg PO QDL RF: 0 metoprolol succinate 200 mg tablet extended release 24 hr 200 mg PO QAM RF: 0 dicyclomine 20 mg tablet 20 mg PO TID PRN (Reason: abdominal pain) Qty: 9 RF: 0 omeprazole 40 mg Capsule,Delayed Release(Dr/Ec) 40 mg PO DAILY RF: 0 ondansetron HCl [Zofran] 4 mg Tablet 4 mg PO Q6H PRN (Reason: nausea/vomiting) RF: 0 tramadol 50 mg Tablet 50 mg PO DIRECTED PRN (Reason: Pain) RF: 0 gabapentin 400 mg capsule 400 mg PO QID RF: 0 sertraline 100 mg tablet 100 mg PO HS RF: 0 potassium chloride 20 mEq tablet,ER particles/crystals 20 meq PO QAM RF: 0 lisinopril 40 mg tablet 40 mg PO QAM RF: 0 hydralazine 25 mg Tablet 25 mg PO BID RF: 0 Referrals Referrals: Balwinder Pinedo [Primary Care Provider] - Discharge Problem: CHF (congestive heart failure) Qualifiers: Heart failure type: unspecified Heart failure chronicity: acute on chronic Qualified Code(s): I50.9 - Heart failure, unspecified Anemia Qualifiers: Anemia type: unspecified type Qualified Code(s): D64.9 - Anemia, unspecified
--- NOTE | 2019-10-04 21:56 | XRay Report ---
XR chest 1V portable CLINICAL HISTORY: 79 years-old Female presenting with weakness. TECHNIQUE: Portable upright AP view of the chest was obtained. COMPARISON: 09/30/2019. FINDINGS: Atherosclerosis of the aortic arch. Cardiopericardial silhouette markedly enlarged. Added density of the lungs with a basilar predominance. Chronic elevation of the left hemidiaphragm. Suspected underly ing left pleural effusion. Pulmonary vascular prominence. Interstitial prominence. No pneumothorax. C ervical and thoracolumbar fusion hardware. Degenerative changes of the spine. Suspected osteopenia. U pper abdomen normal. IMPRESSION: 1. Marked cardiomegaly with volume overload and congestive change. This has slightly worsened from p rior. Mild degree of pulmonary edema may be present. 2. Chronic elevation of the left hemidiaphragm with suspected underlying left pleural effusion and a telectasis. ACT 112: Negative or not required by law. Electronically signed by: Edmond Menchaca M.D. 10/04/2019 9:55 PM
[2019-10-04 22:02] LABS: Basophils # (auto) 0.02 K/uL (0-0.2); Basophils % (auto) 0.3 %; Eosinophils # (auto) 0.19 K/uL (0-0.5); Hematocrit (blood only) 29.1 % (37-47); Hemoglobin 9.4 g/dL (12.0-16.0); Lymphocytes # (auto) 0.41 K/uL (1.2-3.4); Lymphocytes % (auto) 6.4 %; Mean Corpuscular Hemoglobin 29.8 pg (25-34); Mean Corpuscular Hgb Conc 32.3 g/dL (32-36); Mean Corpuscular Volume 92.4 fL (80-100); Mean Platelet Volume 9.1 fL (7.4-10.4); Monocytes # (auto) 0.58 K/uL (0.11-0.59); Neutrophils # (auto) 5.22 K/uL (1.4-6.5); Neutrophils % (auto) 81.3 %; Platelet Count 240 K/uL (130-400); RDW Coefficient of Variation 14.8 % (11.5-14.5); RDW Standard Deviation 50.1 fL (36.4-46.3); Red Blood Count 3.15 M/uL (4.2-5.4); White Blood Count 6.42 K/uL (4.8-10.8)
--- NOTE | 2019-10-04 22:02 | XRay Report ---
XR hip RT 2V w pelvis CLINICAL HISTORY: 79 years-old Female presenting with right hip pain, questionable fall. TECHNIQUE: Single frontal view of the pelvis and frontal and crosstable lateral views of the right hi p were obtained. COMPARISON: 10/27/2018. FINDINGS: Posterior lumbar fusion hardware. Extensive osseous fusion of the lower lumbar spine. Sacroiliac join ts, pubic symphysis, and hip joints congruent. Sacrum is grossly intact though suboptimally evaluated . Bony pelvis intact. Femoral necks grossly intact bilaterally. Suboptimal crosstable lateral view of the right hip with nonvisualization of the hip joint. Allowing for this, the right hip is grossly no rmal appearing. No radiographic soft tissue abnormality. IMPRESSION: Allowing for image quality, no convincing evidence of a pelvic or right hip fracture. ACT 112: Negative or not required by law. Electronically signed by: Edmond Menchaca M.D. 10/04/2019 10:01 PM
[2019-10-04 22:08] LABS: Appearance Urine Clear (Clear); Bacteria Urine Automated 4+ (Negative); Bilirubin Urine Negative (Negative); Blood Urine Negative (Negative); Cast Urine Automated 0 /lpf (0-5); Color Urine Yellow; Glucose Urine UA Negative (Negative); Ketones Urine Negative (Negative); Leukocyte Esterase Urine Trace (Negative); Nitrite Urine Positive (Negative); Protein Urine Negative (Negative); RBC Urine Automated 0-4 /hpf (0-4); Specific Gravity Urine 1.014 (1.000-1.030); Urobilinogen Urine Negative (Negative)
[2019-10-04] MEDS ORDERED: FUROSEMIDE 40 MG/4 ML VIAL IV STA (22:10)
[2019-10-04 22:16] LABS: Alanine Aminotransferase 28 U/L (12-78); Albumin Level 3.5 gm/dl (3.4-5.0); Aspartate Aminotransferase 17 U/L (15-37); Blood Urea Nitrogen 19 mg/dl (7-18); Calcium 8.7 mg/dl (8.5-10.1); Carbon Dioxide 31 mmol/L (21-32); Chloride 92 mmol/L (98-107); Creatinine Clr Calc Pharmacy 52.9 ml/min; Est GFR (Non-African American) 57.8; Glucose 102 mg/dl (70-99); Sodium 128 mmol/L (136-145)
[2019-10-04 22:21] LABS: Albumin Globulin Ratio 1.2 (0.9-2); Alkaline Phosphatase 73 U/L (45-117); Bilirubin,Total 0.4 mg/dl (0.2-1); Globulin 2.9 gm/dl (2.5-4.0); NT Pro B Type Natriuretic Pept 7463 pg/ml (0-1800); Total Protein 6.4 gm/dl (6.4-8.2); Troponin I < 0.015 ng/ml (0-0.045)
--- NOTE | 2019-10-05 00:13 | History & Physical Report ---
Date of Service October 04, 2019 Assessment & Plan (1) CHF (congestive heart failure): 79 yo F with PMH diastolic CHF, chronic R SI Joint pain, RLS, HTN, cervical spondylosis presents with concerns of R hip pain found to be hypoxic at times and fluid overloaded on CXR, and found to have UA concerning for acute UTI. Acute on Chronic Diastolic CHF Exacerbation -CXR: Marked cardiomegaly with volume overload and congestive change. Repeat CXR in AM -BNP 7463 on admission. Trop neg -last ECHO Jul 2016: Severe concentric LVH. Hyperdynamic LV function. LVEF >70%. No regional wall motion abnormalities. Grade 1 diastolic dysfunction. Will repeat another this admission -likely 2/2 medication noncompliance. Normally take Lasix 80 mg PO daily, hold. Cont PO KCl 20 meq daily -given IV Lasix 60 mg in ED. Cont with IV 40 BID for now, titrate/switch to PO moving forward -cont ACEi with Lisinopril 40mg -monitor I's/O's, daily weights -supplemental O2 as needed. At baseline O2 requirement on admission 2L NC sating well Hyponatremia -Na 128 on admission -restrict water intake, secondary benefit of minimizing acute increase in intravascular volume preventing development of pulmonary congestion -ACEi, Loop Diuretic as above -daily BMP Chronic R Hip Pain -no acute concern -Hip/Pelvis XR: No convincing evidence of a pelvic or right hip fracture -resolved with PO Tramadol 50mg in ED. Pt notes that she ran out of her Rx for this. Cont prn Tramadol for severe pain for now, otherwise Acetaminophen/Ibuprofen first line -normally ambulates with walker -PT/OT pending. Assist in d/c planning Acute UTI -Admission UA: Nitrite+, Trace LE, 4+ Bacteria -urine cx pending -pt denies any urinary sxs, asymptomatic. We will tx regardless given pt noncompliance and high likelihood this would only worsen -cont with IV Rocephin for now HTN -cont home hydralazine, lisinopril, metoprolol. Hold amlodipine RLS -cont gabapentin Normocytic Anemia -hgb 9.4 on admission. Baseline ~12-13 on previous visits -no concern for acute bleed at present -etiology unclear. Will order peripheral smear to initiate workup -?anemia of chronic dx, hospital-acquired anemia from multiple recent visits -daily CBC Discharge Planning -Family/daughter is concerned about the patient's increased 911 calls, multiple ED visits, noncompliance, and are not sure what to do at this point. They are hoping inpatient CM can help come up with a d/c plan for the patient, seem eager for usp placement -PT/OT, CM consulted for discharge planning FEN/GI: HH Diet, Fluid Restriction DVT Prophylaxis: Lovenox SQ Full Code Dispo: Med Tele. Appreciate CM assistance in d/c planning History of Present Illness Chief Complaint: r hip pain Primary Care Provider: Balwinder Pinedo 79 yo F with PMH diastolic CHF, chronic R SI Joint pain, RLS, HTN, cervical spondylosis presents to [facility] with concerns of ongoing R hip pain. History somewhat limited 2/2 pt being a poor historian and no family present. Pt with multiple ER visits of recent (4x in September) for similar issue. Apparently, pt called 911 today at least 5 times, and they finally brought her in on last call. Notes pain going on for ~1 yr. Described as sharp constant, nonradiating. 8/10 severity at worst. Made worse by sitting on it. Used to get better with Rx for Tramadol, but pt states she does not have this anymore ('someone threw it out') and has not been able to see PCP for refill yet. Pt normally ambulates with walker. Denies trauma/falls. Pt given 50 mg Tramadol in ED and at time of my evaluation, pt denies any R hip pain. Additionally, pt does note some increased SOB when ambulating to bathroom or kitchen. New onset that seems to have worsened today. Alleviated by sitting in recliner. Normally with 2L O2 at home. Noted to be somewhat hypoxic at times in the ED. Pt notes that she 'had the flu' last month and thinks may be contributing. CM called daughter and apparently pt is noncompliant at home. Associated CERVANTES, orthopnea, cough, but otherwise denies F/N/V/D, chills, CP, palpitations, edema, TEE, sore throat, rhinorrhea, lightheadedness/dizziness, urinary sxs, recent travel, sick contacts. Pt with no other acute concerns or complaints. EKG: sinus bradycardia. RBB. No acute ischemic changes. QTC 440. Compared to an EKG from 30 September 2019, no significant change. CXR: Marked cardiomegaly with volume overload and congestive change. This has slightly worsened from prior. Hip/Pelvis XR: No convincing evidence of a pelvic or right hip fracture. Pertinent Labs: hgb 9.4, Na 128, BNP 7463, Trop neg ER Course: IV Tylenol 1g, Albuterol, IV Lasix 60mg, NSS 500ml, Tramadol 50 mg PO Social Hx: Denies Tobacco, Alcohol, Illicit drug use Surgical Hx: Back/Neck Sx Allergies Allergy/AdvReac Type Severity Reaction Status Date / Time celecoxib [From Celebrex] Allergy Unknown CAN'T Verified 10/04/19 21:27 REMEMBER duloxetine Allergy Unknown CAN'T Verified 10/04/19 21:27 REMEMBER paroxetine [From Paxil] Allergy Unknown CAN'T Verified 10/04/19 21:27 REMEMBER propoxyphene Allergy Unknown CAN'T Verified 10/04/19 21:27 [From Darvocet-N 100] REMEMBER rofecoxib Allergy Unknown CAN'T Verified 10/04/19 21:27 REMEMBER Home Medications Home Medications Medication Instructions Recorded Confirmed Type gabapentin 400 mg PO QID 10/27/18 10/04/19 History lisinopril 40 mg PO QAM 10/27/18 10/04/19 History potassium chloride 20 meq PO QAM 10/27/18 10/04/19 History sertraline 100 mg PO HS 10/27/18 10/04/19 History diclofenac sodium 1 % topical gel 2 g TOPICAL ONCE PRN gm 04/24/19 10/04/19 History docusate sodium 100 mg capsule 100 mg PO BID PRN cap 04/24/19 10/04/19 History amlodipine 10 mg PO QAM 05/18/19 10/04/19 History hydralazine 25 mg PO BID 09/11/19 10/04/19 History calcium carbonate-vitamin D3 1 tab PO BID 09/17/19 10/04/19 History [Calcium 600 + D(3)] dicyclomine 20 mg PO TID PRN #9 tab 09/17/19 10/04/19 Rx ibuprofen 400 mg PO Q6H PRN 09/17/19 10/04/19 History metoprolol succinate 200 mg PO QAM 09/17/19 10/04/19 History oxybutynin chloride 5 mg PO QDL 09/17/19 10/04/19 History furosemide 80 mg tablet 80 mg PO QAM #90 tab 09/22/19 10/04/19 Rx omeprazole 40 mg PO DAILY 09/26/19 10/04/19 History ondansetron HCl [Zofran] 4 mg PO Q6H PRN 09/26/19 10/04/19 History tramadol 50 mg PO DIRECTED PRN 09/26/19 10/04/19 History Past Med/Surg History Medical History Cervical spondylosis with myelopathy (Acute 01/02/12) CHF (congestive heart failure) (Inactive) Chronic right SI joint pain (Acute) Hip pain, chronic (Inactive) History of back surgery (Acute) Restless leg (Inactive) Surgical History History of back surgery History of neck surgery Social History Preferred Language: Tajik Communication Ability: Effective Test Lead Required: No Beliefs That Will Affect Care: None marital status: / Current Living Situation: Alone current occupational status: retired Other Information That Helps Us Care for You: Yes Feels Safe at Home: Yes Safety Concerns: Feels Safe At This Time Smoking Status: Never smoker Review of Systems Review of Systems: All systems reviewed & are unremarkable except as noted in HPI & below Physical Exam Constitutional: WD/WN, vitals as above Eyes: PERRL, conjunctivae normal, anicteric sclerae ENMT: external ear and nose normal, oropharynx normal Respiratory: normal respiratory effort; no respiratory distress Auscultation: + crackles (mild) and + wheezes Cardiovascular: Rate/Rhythm: regular rate and regular rhythm Heart Sounds: + murmur (systolic) Gastrointestinal (Abdomen): normal bowel sounds, soft, nontender, no hepatosplenomegaly Musculoskeletal: mild TTP over R lateral hip Skin: no rashes, warm and dry Psychiatric: A+Ox3, euthymic affect Results & Data Results & Data ([facility]) Vital Signs (Past 12 Hours) Vital Signs Temp Pulse Pulse Resp BP BP Pulse Ox 10/04/19 22:25 54 L 18 152/70 H 95 10/04/19 21:47 56 L 22 100 10/04/19 21:34 62 22 153/88 H 95 10/04/19 21:24 95 10/04/19 20:47 36.8 C 62 20 136/82 87 L Laboratory Results Laboratory Results - last 24 hr 10/04/19 10/04/19 10/04/19 21:25 21:25 21:30 WBC 6.42 RBC 3.15 L Hgb 9.4 L Hct 29.1 L MCV 92.4 MCH 29.8 MCHC 32.3 RDW Std Deviation 50.1 H RDW Coeff of Idania 14.8 H Plt Count 240 MPV 9.1 Immature Gran % (Auto) 0.0 Neut % (Auto) 81.3 Lymph % (Auto) 6.4 [place] % (Auto) 9.0 Eos % (Auto) 3.0 Baso % (Auto) 0.3 Immature Gran # (Auto) 0.00 Neut # (Auto) 5.22 Lymph # (Auto) 0.41 L [place] # (Auto) 0.58 Eos # (Auto) 0.19 Baso # (Auto) 0.02 Absolute Nucleated RBC 0.00 Nucleated RBC % (auto) 0.0 Sodium 128 L Potassium 5.0 Chloride 92 L Carbon Dioxide 31 Anion Gap 5.0 BUN 19 H Creatinine 0.95 Est Cr Clr Drug Dosing 52.9 Est GFR ( Amer) 67.0 Est GFR (Non-Af Amer) 57.8 BUN/Creatinine Ratio 20.0 Glucose 102 H Calcium 8.7 Total Bilirubin 0.4 AST 17 ALT 28 Alkaline Phosphatase 73 Troponin I < 0.015 NT-Pro-B Natriuret Pep 7463 H Total Protein 6.4 Albumin 3.5 Globulin 2.9 Albumin/Globulin Ratio 1.2 Urine Color Yellow Urine Appearance Clear Urine pH 7.0 Ur Specific [place] 1.014 Urine Protein Negative Urine Glucose (UA) Negative Urine Ketones Negative Urine Blood Negative Urine Nitrite Positive A Urine Bilirubin Negative Urine Urobilinogen Negative Ur Leukocyte Esterase Trace H Urine WBC (Auto) 1-5 Urine RBC (Auto) 0-4 U Hyaline Cast (Auto) 0 U Epithel Cells (Auto) 10-20 H Urine Bacteria (Auto) 4+ H Code Status & VTE Plan Code Status FULL Supervising Physician Co-Signing Physician Notes Attending addendum: I have physically seen this patient, have supervised the medical residents activities, and agree with the H&P unless as otherwise noted. Assessment and Plan: Acute on chronic diastolic CHF- The patient will be admitted to telemetry for serial cardiac enzymes, serial EKG's, cardiac rhythm monitoring and a 2-D echocardiogram with Dopplers. Patient with known history of medical noncompliance, per family, is noted to sit around in her chair all day long and does not take medications or have an appropriate diet. Hold oral Lasix 80 mg p.o. twice daily instead place on Lasix 60 mg IV once in the ED, and then 40 mg IV twice daily. Continue lisinopril 40 mg daily. Follow serial BMP and magnesium levels. Hyponatremia- Sodium 128 upon admission. Likely due to volume overload. Diurese as above, and repeat laboratories every morning. Urinary tract infection- Follow urine culture and sensitivity. Empiric ceftriaxone 1 g IV daily. Remainder of orders and notations as noted. Resident Activity Tracking Resident Involvement: Resident Care Provided Care Provided: Adult Hospital Medicine (1) CHF (congestive heart failure) Heart failure chronicity: acute on chronic Heart failure type: unspecified Qualified Code(s): I50.9 - Heart failure, unspecified
[2019-10-05] MEDS ORDERED: ALUMINUM/MAGNESIUM SUSP 30 ML UDC PO PRN (01:32)
[2019-10-05] MEDS ORDERED: IBUPROFEN 200 MG TAB PO PRN (01:32)
[2019-10-05] MEDS ORDERED: DOCUSATE SODIUM 100 MG CAP PO PRN (01:32)
[2019-10-05] MEDS ORDERED: ACETAMINOPHEN 325 MG TAB PO PRN (01:32)
[2019-10-05] MEDS: cefTRIAXone SODIUM 2,000 MG in DEXTROSE 5% 50 ML IV SCH (02:51)
--- NOTE | 2019-10-05 06:40 | XRay Report ---
XR chest 1V portable CLINICAL HISTORY: daily dyspnea COMPARISON STUDY: 10/04/2019 FINDINGS: Stable cardiomegaly. Unchanged consolidative process left lung base. Prominent pulmonary va sculature. IMPRESSION: 1. Stable cardiomegaly with a left pleural effusion. 2. Findings of congestive heart failure unchanged. ACT 112: Negative or not required by law. The above report was generated using voice recognition software. It may contain grammatical, syntax or spelling errors. Electronically signed by: David Doty M.D. 10/05/2019 6:39 AM
[2019-10-05 07:12] LABS: Hematocrit (blood only) 30.9 % (37-47); Hemoglobin 9.8 g/dL (12.0-16.0); Mean Corpuscular Hemoglobin 29.3 pg (25-34); Mean Corpuscular Hgb Conc 31.7 g/dL (32-36); Mean Corpuscular Volume 92.5 fL (80-100); RDW Coefficient of Variation 14.8 % (11.5-14.5); RDW Standard Deviation 50.4 fL (36.4-46.3); Red Blood Count 3.34 M/uL (4.2-5.4); White Blood Count 5.15 K/uL (4.8-10.8)
[2019-10-05 07:16] LABS: BUN Creatinine Ratio 19.2 (10-20); Basophils # (auto) 0.01 K/uL (0-0.2); Basophils % (auto) 0.2 %; Calcium 8.5 mg/dl (8.5-10.1); Creatinine Clr Calc Pharmacy 52.2 ml/min; Eosinophils # (auto) 0.18 K/uL (0-0.5); Eosinophils % (auto) 3.5 %; Est GFR (Non-African American) 57.8; Immature Granulocytes # (auto) 0.02 K/uL (0.00-0.02); Immature Granulocytes % (auto) 0.4 %; Lymphocytes # (auto) 0.37 K/uL (1.2-3.4); Lymphocytes % (auto) 7.2 %; Mean Platelet Volume 9.1 fL (7.4-10.4); Monocytes # (auto) 0.51 K/uL (0.11-0.59); Monocytes % (auto) 9.9 %; Neutrophils # (auto) 4.06 K/uL (1.4-6.5); Neutrophils % (auto) 78.8 %; Ovalocytes 1+; Platelet Count 221 K/uL (130-400); Platelet Estimate Normal (Normal); Potassium 4.9 mmol/L (3.5-5.1)
[2019-10-05] MEDS: METOPROLOL SUCC 50MG EXT REL TAB PO SCH (08:12)
[2019-10-05] MEDS: GABAPENTIN 400 MG CAP PO SCH ×4 (08:15→20:46)
[2019-10-05] MEDS: ENOXAPARIN INJ 40 MG/0.4 ML SYR SQ SCH (08:15)
[2019-10-05] MEDS: POTASSIUM CHLORIDE 20 MEQ TABCR PO SCH (08:15)
[2019-10-05] MEDS: lisinopriL 40 MG TAB PO SCH (08:15)
[2019-10-05] MEDS: CALCIUM 600MG + VIT D 400 IU TAB PO SCH ×2 (08:15→20:46)
[2019-10-05] MEDS: FUROSEMIDE 40 MG in SYRINGE 0 ML IV SCH ×2 (08:15→16:57)
[2019-10-05] MEDS: PANTOprazole 40 MG TAB PO SCH (08:15)
[2019-10-05] MEDS: ONDANSETRON INJ 2 MG/ML 2 ML VIAL IV PRN (08:46)
[2019-10-05] MEDS: DICYCLOMINE HCL 20 MG TAB PO PRN (08:49)
[2019-10-05] MEDS ORDERED: AMLODIPINE BESYLATE 5 MG TAB PO SCH (09:00)
[2019-10-05] MEDS ORDERED: MICONAZOLE NITRATE POWDER 43 GM EXT PRN (11:42)
--- NOTE | 2019-10-05 11:43 | XCELERA ---
[id number] \\[id number]
--- NOTE | 2019-10-05 12:11 | Electrocardiogram Report ---
Test Reason : Blood Pressure : / mmHG Vent. Rate : 054 BPM Atrial Rate : 054 BPM P-R Int : 194 ms QRS Dur : 126 ms QT Int : 464 ms P-R-T Axes : 042 -45 -30 degrees QTc Int : 440 ms Sinus bradycardia with sinus arrhythmia Right bundle branch block Left anterior fascicular block Bifascicular block Minimal voltage criteria for LVH, may be normal variant Abnormal ECG When compared with ECG of 30-SEP-2019 19:59, Nonspecific T wave abnormality now evident in Lateral leads Confirmed by Shaun Shabazz ([id number]) on 10/05/2019 12:11:29 PM Referred By: REFERRED SELF Confirmed By:Shaun Shabazz
[2019-10-05] MEDS: OXYBUTYNIN CHLORIDE XL 5 MG TABCR PO SCH (12:16)
[2019-10-05] MEDS: POLYETHYLENE (MIRALAX) 17 GM PACK PO PRN (12:18)
--- NOTE | 2019-10-05 14:09 | Family Medicine Progress Note ---
Date of Service October 05, 2019 Assessment & Plan (1) CHF (congestive heart failure): 79 yo F with PMH diastolic CHF, chronic R SI Joint pain, RLS, HTN, cervical spondylosis presents with concerns of R hip pain found to be hypoxic at times and fluid overloaded on CXR, and found to have UA concerning for acute UTI. Acute on chronic diastolic CHF - echo 10.05.2019 EF 60-65% grade II diastolic dysfunction - continue lisinopril, metoprolol. Responding to furosemide, may need to increase dose. Approx dry weight 88kg per prev visits. Hyponatremia - trend BMP, restricting fluid intake and continue furosemide Acute UTI - continue rocephin. F/u UCx HTN - continue metoprolol, lisinopril, hydralazine. Holding home amlodipine Chronic hip pain - PT/OT consultation. Chronic tramadol for pain control. RLS - continue gabapentin Anemia, chronic normocytic - repeat CBC in AM. Peripheral smear pending. Discharge Planning per admit note -Family/daughter is concerned about the patient's increased 911 calls, multiple ED visits, noncompliance, and are not sure what to do at this point. They are hoping inpatient CM can help come up with a d/c plan for the patient, seem eager for shelter placement -PT/OT, CM consulted for discharge planning FEN/GI: HH Diet, Fluid Restriction DVT Prophylaxis: Lovenox SQ Full Code Admission and Anticipated Discharge Date Admission Date: October 05, 2019 Subjective Pt seen and examined at bedside. Persistent shortness of breath worse with prone positioning, improved with being upright. Exacerbated by activity. Tolerating POI well. Review of Systems Constitutional: + fatigue; no fever and no chills Respiratory: + cough, + dyspnea and + dyspnea on exertion; no wheezing Cardiovascular: no chest pain, no palpitations and no syncope Gastrointestinal: + belching; no abdominal pain, no nausea, no vomiting, no constipation and no diarrhea/loose stools Integumentary: no rash and no lesions Neurologic: no tingling, no numbness, no dizziness and no headache(s) Physical Exam Constitutional: WD/WN, vitals as above no acute distress Respiratory: normal respiratory effort, lungs clear to auscultation Cardiovascular: Rate/Rhythm: regular rate and regular rhythm Heart Sounds: normal S1, normal S2 and + murmur (3/6 LILY) Gastrointestinal (Abdomen): normal bowel sounds, soft, nontender, no hepatosplenomegaly Neurologic: PERRL, EOMI, accommodation nl, no face palsy, no dysarthria Results & Data ([facility]) Vital Signs (Past 12 Hours) Vital Signs Temp Pulse Pulse Resp BP Pulse Ox 10/05/19 11:32 36.6 C 54 L 18 117/57 L 97 10/05/19 08:00 47 L 10/05/19 04:58 36.7 C 53 L 20 151/67 H 96 (1) CHF (congestive heart failure) Heart failure chronicity: acute on chronic Heart failure type: unspecified Qualified Code(s): I50.9 - Heart failure, unspecified
[2019-10-05] MEDS: TRAMADOL HCL 50 MG TABLET PO PRN (19:20)
[2019-10-05] MEDS: SERTRALINE HCL 100 MG TABLET PO SCH (20:46)
--- NOTE | 2019-10-05 22:12 | Billing Data ---
Date of Service October 05, 2019 Coding Level of Care Code 58044 Initial Inpt Care Lvl 3
[2019-10-06] MEDS: cefTRIAXone SODIUM 2,000 MG in DEXTROSE 5% 50 ML IV SCH (01:14)
[2019-10-06 07:16] LABS: Basophils # (auto) 0.01 K/uL (0-0.2); Basophils % (auto) 0.2 %; Eosinophils # (auto) 0.18 K/uL (0-0.5); Eosinophils % (auto) 3.2 %; Hematocrit (blood only) 30.5 % (37-47); Hemoglobin 9.5 g/dL (12.0-16.0); Immature Granulocytes # (auto) 0.01 K/uL (0.00-0.02); Immature Granulocytes % (auto) 0.2 %; Lymphocytes # (auto) 0.37 K/uL (1.2-3.4); Lymphocytes % (auto) 6.6 %; Mean Corpuscular Hemoglobin 29.5 pg (25-34); Mean Corpuscular Hgb Conc 31.1 g/dL (32-36); Mean Corpuscular Volume 94.7 fL (80-100); Mean Platelet Volume 9.1 fL (7.4-10.4); Monocytes # (auto) 0.43 K/uL (0.11-0.59); Monocytes % (auto) 7.7 %; Neutrophils # (auto) 4.58 K/uL (1.4-6.5); Neutrophils % (auto) 82.1 %; Platelet Count 218 K/uL (130-400); RDW Coefficient of Variation 14.6 % (11.5-14.5); RDW Standard Deviation 50.7 fL (36.4-46.3); Red Blood Count 3.22 M/uL (4.2-5.4); White Blood Count 5.58 K/uL (4.8-10.8)
[2019-10-06] MEDS: POTASSIUM CHLORIDE 20 MEQ TABCR PO SCH (07:40)
[2019-10-06] MEDS: lisinopriL 40 MG TAB PO SCH (07:40)
[2019-10-06] MEDS: CALCIUM 600MG + VIT D 400 IU TAB PO SCH ×2 (07:40→20:49)
[2019-10-06 07:41] LABS: BUN Creatinine Ratio 22.5 (10-20); Calcium 8.7 mg/dl (8.5-10.1); Creatinine Clr Calc Pharmacy 58.8 ml/min; Est GFR (African American) 78.8; Potassium 4.9 mmol/L (3.5-5.1)
[2019-10-06] MEDS: PANTOprazole 40 MG TAB PO SCH (07:41)
[2019-10-06] MEDS: METOPROLOL SUCC 50MG EXT REL TAB PO SCH (07:42)
[2019-10-06] MEDS: GABAPENTIN 400 MG CAP PO SCH ×4 (07:42→20:49)
[2019-10-06 07:44] LABS: Bilirubin,Total 0.2 mg/dl (0.2-1); Globulin 3.1 gm/dl (2.5-4.0); Total Protein 6.1 gm/dl (6.4-8.2)
[2019-10-06] MEDS: FUROSEMIDE 40 MG in SYRINGE 0 ML IV SCH ×2 (08:23→16:39)
[2019-10-06] MEDS: POLYETHYLENE (MIRALAX) 17 GM PACK PO PRN (08:51)
[2019-10-06] MEDS: ENOXAPARIN INJ 40 MG/0.4 ML SYR SQ SCH (08:59)
[2019-10-06] MEDS ORDERED: POLYETHYLENE (MIRALAX) 17 GM PACK PO ONE (11:00)
[2019-10-06] MEDS: OXYBUTYNIN CHLORIDE XL 5 MG TABCR PO SCH (11:42)
[2019-10-06] MEDS: DICYCLOMINE HCL 20 MG TAB PO PRN ×2 (12:51→20:48)
--- NOTE | 2019-10-06 12:51 | Hospitalist Progress Note ---
Date of Service October 06, 2019 Assessment & Plan (1) CHF (congestive heart failure): 79 yo F with PMH diastolic CHF, chronic R SI Joint pain, RLS, HTN, cervical spondylosis presents with concerns of R hip pain found to be hypoxic at times and fluid overloaded on CXR, and found to have UA concerning for acute UTI. Acute on chronic diastolic CHF - echo 10.05.2019 EF 60-65% grade II diastolic dysfunction - continue lisinopril, metoprolol. continue diuresis and follow BMP - no rales but ongoing diminished breath sounds bibasilar. constipation - hx and exam c/w constipation of some significance. abdominal bloating likely pushing on chest some also accentuating SOB. miralax Hyponatremia - trend BMP, restricting fluid intake and continue furosemide - improving, corroborating that low Na probably fluid overload related Acute UTI - questionable - continue rocephin today for 3 days treatment, then anticipate dc. HTN - continue metoprolol, lisinopril, hydralazine. Holding home amlodipine Chronic hip pain - PT/OT consultation. Chronic tramadol for pain control. no complaints of this today RLS - continue gabapentin Anemia, chronic normocytic - smear queries deficiencies - check iron panel, b12, folate anxiety - reassurance, supportive care, outpt management otherwise discharge planning: -Family/daughter is concerned about the patient's increased 911 calls, multiple ED visits, noncompliance, and are not sure what to do at this point. They are hoping inpatient CM can help come up with a d/c plan for the patient, seem eager for prison placement -PT/OT, CM consulted for discharge planning -discussed prelim input after discussions with PT (did not have formal thoughts in note - but discussed with PT right after seeing patient and they expressed concerns on safety - discussed with pt who seemed neither opposed to nor in favor of SNF/rehab as a dispo. tried to call son who she lives with - no answer/voicemail full, tried to call dtr no answer DVT Prophylaxis: Lovenox SQ Full Code Admission and Anticipated Discharge Date Admission Date: October 05, 2019 Subjective initially quite distressed when i enter the room - holding upper abdomen/lower chest and repeating that something is blocking her breathing. when asking to define her sx further she keeps repeating that something is blocking her breathing and that it needs to be opened up. then talks about dr enriquez having done spine surgery on her neck and back and that she's got nuts and bolts and shouldn't have nuts and bolts and loosely says something along the lines of having passed nuts and bolts in the bathroom - when i ask her to clarify she just goes back to talking about the nuts and bolts in her neck. the longer we talk, the more she calms, as i put a pulse ox on her and show her she is 94-95% on 3L and explain the nominal difference in FiO2 between 2L and 3L she calms, breathing gets easier, and the feeling that something is blocked starts to go away. she then relates it more as an upper abdominal discomfort and while she had BM earlier (she doesn't know size/quality/etc) she relates that she probably is still constipated. as we talk, breathing seems to get easier, and she does admit that no small part of her shortness of breath is probably due to anxiety. in discussing dispo she notes she lives with her son; discussed that PT was concerned about her ability to be at home independently - she was neither in favor of nor opposed to rehab/snf placement but seemed amenable to ongoing therapy in some capacity. Review of Systems Review of Systems: All systems reviewed & are unremarkable except as noted in HPI & below Physical Exam Physical Exam: gen - awake, pleasant - initially quite anxious but calms as we converse more. heent nc at mmm. cardio reg no r/m/g. lungs diminished bibasilar no r/r/w good effort no accessory muscles. abd soft but moderately distended, tender lower than epigastric, higher than periumbilical in middle upper abdomen. no guarding no rebound - does have a feeling of fullness. ext no cyanosis, trace b/l edema. neuro cn 2-12 grossly intact no noted focal deficits. skin no rashes no pallor or icterus Results & Data Results & Data ([facility]) Vital Signs (Past 12 Hours) Vital Signs Temp Pulse Resp BP BP Pulse Ox 10/06/19 11:08 98.1 F 68 20 128/74 94 10/06/19 09:48 93 10/06/19 07:53 98.1 F 62 18 168/72 H 92 10/06/19 04:08 98.1 F 54 L 17 127/66 98 PG Care Time/CCT Total # of Minutes Spent Total Time Spent with Patient: Total time spent is greater than 50% in coordination of care (as documented) at patient's floor/unit and/or counseling patient: Coding Level of Care Code 77189 Subseq Hosp Care Lvl 3 Diagnoses CHF (congestive heart failure) I50.9 Heart failure chronicity: acute on chronic Heart failure type: unspecified (1) CHF (congestive heart failure) Heart failure chronicity: acute on chronic Heart failure type: unspecified Qualified Code(s): I50.9 - Heart failure, unspecified
[2019-10-06] MEDS: TRAMADOL HCL 50 MG TABLET PO PRN ×2 (15:45→23:20)
[2019-10-06] MEDS: DICLOFENAC SOD 1% GEL 100 GM TUBE EXT PRN (19:19)
[2019-10-06] MEDS: SERTRALINE HCL 100 MG TABLET PO SCH (20:50)
[2019-10-07] MEDS: cefTRIAXone SODIUM 2,000 MG in DEXTROSE 5% 50 ML IV SCH (01:04)
[2019-10-07] MEDS: ONDANSETRON INJ 2 MG/ML 2 ML VIAL IV PRN (03:40)
[2019-10-07 07:34] LABS: Calcium 8.8 mg/dl (8.5-10.1); Creatinine Clr Calc Pharmacy 53.5 ml/min; Est GFR (African American) 70.5; Est GFR (Non-African American) 60.9; Potassium 4.2 mmol/L (3.5-5.1)
[2019-10-07 07:41] LABS: Ferritin 31.4 ng/ml (8-388)
[2019-10-07 08:34] LABS: Folate (Folic Acid) 6.59 ng/ml (>5.38)
[2019-10-07] MEDS: CALCIUM 600MG + VIT D 400 IU TAB PO SCH ×2 (08:55→20:59)
[2019-10-07] MEDS: POTASSIUM CHLORIDE 20 MEQ TABCR PO SCH (08:55)
[2019-10-07] MEDS: lisinopriL 40 MG TAB PO SCH (08:55)
[2019-10-07] MEDS: FUROSEMIDE 40 MG in SYRINGE 0 ML IV SCH (08:55)
[2019-10-07] MEDS: GABAPENTIN 400 MG CAP PO SCH ×4 (08:55→20:59)
[2019-10-07] MEDS: METOPROLOL SUCC 50MG EXT REL TAB PO SCH (08:55)
[2019-10-07] MEDS: PANTOprazole 40 MG TAB PO SCH (08:55)
[2019-10-07] MEDS: ENOXAPARIN INJ 40 MG/0.4 ML SYR SQ SCH (08:55)
[2019-10-07] MEDS: CYANOCOBALAMIN 500 MCG TABLET (VITAMIN B-12) PO SCH (10:42)
[2019-10-07] MEDS: OXYBUTYNIN CHLORIDE XL 5 MG TABCR PO SCH (12:26)
[2019-10-07] MEDS: DICLOFENAC SOD 1% GEL 100 GM TUBE EXT PRN (13:12)
--- NOTE | 2019-10-07 15:47 | Hospitalist Progress Note ---
Date of Service October 07, 2019 Assessment & Plan (1) CHF (congestive heart failure): 79 yo F with PMH diastolic CHF, chronic R SI Joint pain, RLS, HTN, cervical spondylosis presents with concerns of R hip pain found to be hypoxic at times and fluid overloaded on CXR, and found to have UA concerning for acute UTI. Acute on chronic diastolic CHF - echo . EF 60-65% grade II diastolic dysfunction - continue lisinopril, metoprolol. chnage back to baseline 80mg lasix. educated on Na restriction - does eat "TV dinners" more or less daily at lunchtime constipation - has improved. educated on using miralax titration at home. Hyponatremia - improving - almost certainly was fluid overload related. nearly normal now. Acute UTI - questionable - had 3 days ceftriaxone HTN - changing lasix back to home dose, resume home amlodipine Chronic hip pain - PT/OT consultation. Chronic tramadol for pain control. would probably benefit from OMT eval as outpt RLS - continue gabapentin Anemia, chronic normocytic - smear queries deficiencies - check iron panel, b12, folate anxiety - reassurance, supportive care, outpt management otherwise discharge planning: -from admission: Family/daughter is concerned about the patient's increased 911 calls, multiple ED visits, noncompliance, and are not sure what to do at this point. They are hoping inpatient CM can help come up with a d/c plan for the patient, seem eager for retirement placement -PT/OT, CM consulted for discharge planning -does seem that she would benefit from SNF but is of sound mind and only wants to go home. seems to relate that she is at/around her baseline. DVT Prophylaxis: Lovenox SQ Full Code Admission and Anticipated Discharge Date Admission Date: October 05, 2019 Subjective feeling better breathing better belly still a little bloated but better than it was. no f/c/s. breathing more or less at baseline. weakness more or less at baseline - working with PT she feels like she's at her normal. Review of Systems Review of Systems: All systems reviewed & are unremarkable except as noted in HPI & below Physical Exam Physical Exam: gen - nad heent nc at mmm lungs diminished bibasilar no r/r/w good effort abd soft nt mildly distended not as large as before no guarding no rebound ext no cyanosis. Results & Data Results & Data ([facility]) Vital Signs (Past 12 Hours) Vital Signs Temp Pulse Pulse Resp BP BP Pulse Ox 10/07/19 15:02 99.7 F H 97 H 20 158/63 H 90 10/07/19 11:00 98.1 F 72 20 157/90 H 93 10/07/19 10:58 68 10/07/19 07:00 97.7 F 87 20 116/66 90 PG Care Time/CCT Total # of Minutes Spent Total Time Spent with Patient: Total time spent is greater than 50% in coordination of care (as documented) at patient's floor/unit and/or counseling patient: Coding Level of Care Code 81510 Subseq Hosp Care Lvl 3 Diagnoses CHF (congestive heart failure) I50.9 Heart failure chronicity: acute on chronic Heart failure type: unspecified (1) CHF (congestive heart failure) Heart failure chronicity: acute on chronic Heart failure type: unspecified Qualified Code(s): I50.9 - Heart failure, unspecified
[2019-10-07] MEDS: FERROUS GLUCONATE 324 MG TAB PO SCH (16:56)
[2019-10-07] MEDS: SERTRALINE HCL 100 MG TABLET PO SCH (21:25)
[2019-10-08 07:42] LABS: BUN Creatinine Ratio 23.7 (10-20); Calcium 9.2 mg/dl (8.5-10.1); Creatinine Clr Calc Pharmacy 54.9 ml/min; Est GFR (African American) 72.5; Est GFR (Non-African American) 62.5; Potassium 4.7 mmol/L (3.5-5.1)
[2019-10-08] MEDS: DICLOFENAC SOD 1% GEL 100 GM TUBE EXT PRN (08:07)
[2019-10-08] MEDS: METOPROLOL SUCC 50MG EXT REL TAB PO SCH (08:10)
[2019-10-08] MEDS: PANTOprazole 40 MG TAB PO SCH (08:11)
[2019-10-08] MEDS: CALCIUM 600MG + VIT D 400 IU TAB PO SCH (08:11)
[2019-10-08] MEDS: POTASSIUM CHLORIDE 20 MEQ TABCR PO SCH (08:11)
[2019-10-08] MEDS: CYANOCOBALAMIN 500 MCG TABLET (VITAMIN B-12) PO SCH (08:12)
[2019-10-08] MEDS: FERROUS GLUCONATE 324 MG TAB PO SCH (08:12)
[2019-10-08] MEDS: lisinopriL 40 MG TAB PO SCH (08:12)
[2019-10-08] MEDS: GABAPENTIN 400 MG CAP PO SCH ×2 (08:12→11:55)
[2019-10-08] MEDS: ENOXAPARIN INJ 40 MG/0.4 ML SYR SQ SCH (08:14)
[2019-10-08] MEDS: TRAMADOL HCL 50 MG TABLET PO PRN (08:39)
[2019-10-08] MEDS ORDERED: AMLODIPINE BESYLATE 5 MG TAB PO SCH (09:00)
[2019-10-08] MEDS ORDERED: FUROSEMIDE 80 MG TAB PO SCH (09:00)
[2019-10-08] MEDS: ONDANSETRON INJ 2 MG/ML 2 ML VIAL IV PRN (09:28)
[2019-10-08] MEDS: OXYBUTYNIN CHLORIDE XL 5 MG TABCR PO SCH (11:54)
--- NOTE | 2019-10-08 16:31 | Discharge Summary ---
Date of Service October 08, 2019 Admission HPI Per Admitting Provider 79 yo F with PMH diastolic CHF, chronic R SI Joint pain, RLS, HTN, cervical spondylosis presents to [facility] with concerns of ongoing R hip pain. History somewhat limited 2/2 pt being a poor historian and no family present. Pt with multiple ER visits of recent (4x in September) for similar issue. Apparently, pt called 911 today at least 5 times, and they finally brought her in on last call. Notes pain going on for ~1 yr. Described as sharp constant, nonradiating. 8/10 severity at worst. Made worse by sitting on it. Used to get better with Rx for Tramadol, but pt states she does not have this anymore ('someone threw it out') and has not been able to see PCP for refill yet. Pt normally ambulates with walker. Denies trauma/falls. Pt given 50 mg Tramadol in ED and at time of my evaluation, pt denies any R hip pain. Additionally, pt does note some increased SOB when ambulating to bathroom or kitchen. New onset that seems to have worsened today. Alleviated by sitting in recliner. Normally with 2L O2 at home. Noted to be somewhat hypoxic at times in the ED. Pt notes that she 'had the flu' last month and thinks may be contributing. CM called daughter and apparently pt is noncompliant at home. Associated CERVANTES, orthopnea, cough, but otherwise denies F/N/V/D, chills, CP, palpitations, edema, TEE, sore throat, rhinorrhea, lightheadedness/dizziness, urinary sxs, recent travel, sick contacts. Pt with no other acute concerns or complaints. EKG: sinus bradycardia. RBB. No acute ischemic changes. QTC 440. Compared to an EKG from 30 September 2019, no significant change. CXR: Marked cardiomegaly with volume overload and congestive change. This has slightly worsened from prior. Hip/Pelvis XR: No convincing evidence of a pelvic or right hip fracture. Pertinent Labs: hgb 9.4, Na 128, BNP 7463, Trop neg ER Course: IV Tylenol 1g, Albuterol, IV Lasix 60mg, NSS 500ml, Tramadol 50 mg PO Social Hx: Denies Tobacco, Alcohol, Illicit drug use Surgical Hx: Back/Neck Sx Principal Diagnosis acute on chronic HFpEF Discharge Exam gen pleasant nad heent nc at mmm breathing unlabored no accessory muscles good effort skin no rashes no pallor or icterus Discharge Data Allergies Allergy/AdvReac Type Severity Reaction Status Date / Time celecoxib [From Celebrex] Allergy Unknown CAN'T Verified 10/04/19 21:27 REMEMBER duloxetine Allergy Unknown CAN'T Verified 10/04/19 21:27 REMEMBER paroxetine [From Paxil] Allergy Unknown CAN'T Verified 10/04/19 21:27 REMEMBER propoxyphene Allergy Unknown CAN'T Verified 10/04/19 21:27 [From Darvocet-N 100] REMEMBER rofecoxib Allergy Unknown CAN'T Verified 10/04/19 21:27 REMEMBER Consultations 10/04/19 22:26 ED Decision to Admit Stat 10/05/19 01:32 Consult Case Management - Discharge Planning Routine Hospital Course (1) CHF (congestive heart failure): 79 yo F with PMH diastolic CHF, chronic R SI Joint pain, RLS, HTN, cervical spondylosis presents with concerns of R hip pain found to be hypoxic at times and fluid overloaded on CXR, and found to have UA concerning for acute UTI. Acute on chronic diastolic CHF - echo 10.05.2019 EF 60-65% grade II diastolic dysfunction - continue lisinopril, metoprolol. home on home dose of 80mg lasix. educated on Na restriction - does eat "TV dinners" more or less daily at lunchtime re-educated on this. f/u [facility]F clinic and BMP/mag next week constipation - has improved. miralax titration at home. Hyponatremia - improving - almost certainly was fluid overload related. nearly normal now. BMP next week Acute UTI - questionable - had 3 days ceftriaxone HTN - home meds Chronic hip pain - PT/OT consultation. Chronic tramadol for pain control. would probably benefit from OMT eval as outpt RLS - continue gabapentin Anemia, chronic normocytic - smear queries deficiencies - check iron panel, b12, folate anxiety - reassurance, supportive care, outpt management otherwise discharge planning: -from admission note: Family/daughter is concerned about the patient's increased 911 calls, multiple ED visits, noncompliance, and are not sure what to do at this point. They are hoping inpatient CM can help come up with a d/c plan for the patient, seem eager for fdc placement -PT/OT, CM consulted for discharge planning -does seem that she would benefit from SNF but is of sound mind and only wants to go home. seems to relate that she is at/around her baseline. case management discussed with family and they are willing to accept her back home DVT Prophylaxis: Lovenox SQ Full Code Total Time Total Time Spent Total Time Spent (In Minutes): <30 Discharge Plan Discharge Items Patient Disposition: Home - Home Health Services Reason For Visit: CHF Discharge Diagnosis: congestive heart failure (see below) Activity: Resume your previous activity Non-emergency contact: Primary Care Provider Call non-emergency contact if: you have any medication questions Follow-up/Referrals: Balwinder Pinedo [Primary Care Provider] - Diet: Low Sodium (2gm) Addtl Attending Provider Instructions: Congestive Heart Failure: Discharge Instructions Congestive Heart Failure essentially means your heart is able to have a "traffic jam" of fluid that backs up into your lungs. Fluid in lungs then blocks up breathing space making you feel short of breath. In the hospital, our job is to get the fluid off so that you are able to breathe better, and then get you back on track with medication and lifestyle adjustments to keep the traffic jam from happening again. Salt (Sodium) The vast majority of people admitted to the hospital with fluid back up into the lungs get there because of too much salt in their diet. The way our kidneys work: when you take a small amount of sodium, your kidneys hold onto a small amount of water. When you take a large amount of sodium, your kidneys hold onto a large amount of water. When this happens, your blood vessels get flooded, your heart gets overfilled, and the fluid backs up into your lungs. Most people know to avoid the salt shaker, but sodium is in almost anything prepackaged/prepared, as a preservative or as a flavoring agent. Most of the people we take care of who are here with congestive heart failure caused by too much sodium do not use a salt shaker at all. Get into the habit of looking at food labels, so you can see how much sodium is in the foods you eat. The most important number to look at is how much sodium is in each serving. But also notice the size of a serving. [employer] will frequently make a serving size so tiny that it does not look like there is much sodium per serving, but a normal person might eat 3 or 4 servings of the food and take in a lot more sodium than they realized. Keep a "budget" of how much sodium you take in in each day. Most people stay out of trouble and stay out of the hospital as long as they stay "under budget". The majority of congestive heart failure patients do well if they take less than 2000 mg of sodium a day. Because our kidneys retain water based on how much sodium they are seeing in any given moment, it is also important to stay at less than about 500 mg in any given meal. This is because even if you stayed at less than 2000 mg of sodium, but ate it all at once, your kidneys would retain fluid at a rate as though you are taking in much more sodium than you actually are. Occasionally your doctor may specifically recommend restricting even further (such as less than 1500mg per day) so if you have been told to be even stricter with sodium, please follow that advice. -Following How You Are Doing (Wet Versus Dry) Because managing congestive heart failure is an ongoing process, it is very important to learn how to follow your signs and symptoms and track how you are doing at home. This will allow you to catch problems before they become a big deal. In general, as your health care team, we look at managing congestive heart failure chronically as a balance of being "wet" (flooded with fluid) versus being "dry" (dehydrated from treatment). Wet - signs of fluid retention that would warrant further evaluation: Check your weight daily. If your weight goes up by more than 2 pounds in 1 day, it is almost certainly fluid related. This should warrant further thought, and/or a call to your doctor Follow your breathingmost of the time, early on when fluid backs up into your lungs, you will first start to notice shortness of breath when walking, or when lying flat. If you notice either of these, this should warrant further thought, and/or a call to your doctor If you notice both an increase in weight and worsening breathing, that definitely warrants getting seen as soon as possible "Dry"while the goal of managing the disease is to keep you from getting "wet, the medications can sometimes cause a degree of dehydration. Most people with congestive heart failure need frequent lab work (basic metabolic panel). Generally when there has been a change in diuretic dosing (a change in the water pill) or any other major changes, lab work should be followed closely and more frequently afterwards. This is because lab work will frequently show early signs of dehydration before you start to feel bad. Frequent symptoms of being dehydrated include: feeling weak and lightheaded, having lower blood pressures, making less urine than usual, or having a very dry mouth. If you notice any of these signs/symptoms, and you are not due for lab work, it would be quite reasonable to call your doctor to see if lab work or a visit could be arranged. Heart Failure Management Checklist: Limit Salt (Sodium) Intake to 2000mg (2g) per day and 500mg (0.5g) per meal Check weight daily (in same clothes, without shoes) every morning Use the provided chart to enter your weight and salt intake for the day Are you too wet? If you gained 2lb or more - make sure to take your water pill If your breathing is not good (you are more short of breath than usual) call your doctor regardless of weight change If you gained 2lb or more and you are short of breath, see your doctor or come to the emergency room Are you too dry? If you feel weak or lightheaded, have lower blood pressures, make less urine than usual, or have a very dry mouth. Call *we have asked that the congestive heart failure clinic follow up with you as they can really help guide you on day-to-day adjustments* *we expect that they'll want to get labwork (BMP - basic metabolic panel) next week* *it is OK to have your oxygen at 3L as well; if you have a pulse ox meter at home, we'd want to see your readings be above 90%* anemia -your blood counts were a little low on admission - nothing looking like bleeding as much as just low counts -we had the pathologist look at your red cells under the microscope and nothing looked particularly wrong with them, just that they wondered if you were low on iron or vitamin B12 - we checked levels and it appears your in the range of being a little low on both - so we'll supplement with both -ferrous gluconate twice a day (we find it to be far less constipating than ferrous sulfate - which is what is most commonly used) -vitamin B12 1000mcg once a day ---->we'll ask that your PCP follows blood counts when you're getting labs for your congestive heart failure in the next few weeks, and then that they repeat B12 and iron levels around early January ---->we'd also ask that your PCP review to see if you're in need of any of the other things that we sometimes need to do in order to evaluate anemia, such as if you're due for a colonoscopy constipation -you were quite constipated, which was definitely the main cause of your stomach discomfort and probably also a contributor to feeling like you couldn't breathe -usually to make it simple, we'll have people do a "scaled dose" of miralax, taking enough for a goal of one reasonable bowel movement a day ----as a reasonable reference range, one dose (1 capful) is a low-end dose, contrasting with about 12 doses in a row being sometimes used as a bowel prep for a colonoscopy -now that we've gotten your bowels moving, we'll start at the low end of the spectrum, having you take 1 dose a day unless you're seeing that you're having diarrhea. if, on the other hand, you don't have a bowel movement for a day, then the next day increase to 3 doses of miralax; if that doesn't help and you haven't had a bowel movement again (so now up to 2 days without a bowel movement) then we'd have you take another 3 doses the following day. if that hasn't helped (ie you're now working on day four with no bowel movement having already taken 1 dose of miralax on day 1, and 3 doses on BOTH day 2 and day 3) then call your PCP for further instructions (they may just need to have you take more, but that is a time point at which we'd want you talking to someone so they could be sure there are no other symptoms at play) -for odd reasons, the computer would not allow a prescription for miralax to be sent; however, it is an over the counter medication and the generic polyethylene glycol is the same thing. Pending Studies at Discharge: No Stand-Alone Forms: My [facility] [employer], Smoking Cessation Medications and DC Order Prescriptions: New cyanocobalamin (vitamin B-12) 500 mcg Tablet 1,000 mcg PO QAM Qty: 30 RF: 0 ferrous gluconate 324 mg (38 mg iron) Tablet 324 mg PO BIDM Qty: 60 RF: 0 Continued furosemide 80 mg tablet 80 mg PO QAM Qty: 90 RF: 3 docusate sodium 100 mg capsule 100 mg PO BID PRN (Reason: Constipation) RF: 0 diclofenac sodium 1 % gel 2 g topical ONCE PRN (Reason: anti-inflammatory) RF: 0 amlodipine 10 mg tablet 10 mg PO QAM RF: 0 calcium carbonate-vitamin D3 [Calcium 600 + D(3)] 600 mg(1,500mg) -200 unit Tablet 1 tab PO BID RF: 0 oxybutynin chloride 5 mg tablet extended release 24hr 5 mg PO QDL RF: 0 metoprolol succinate 200 mg tablet extended release 24 hr 200 mg PO QAM RF: 0 dicyclomine 20 mg tablet 20 mg PO TID PRN (Reason: abdominal pain) Qty: 9 RF: 0 omeprazole 40 mg Capsule,Delayed Release(Dr/Ec) 40 mg PO DAILY RF: 0 ondansetron HCl [Zofran] 4 mg Tablet 4 mg PO Q6H PRN (Reason: nausea/vomiting) RF: 0 tramadol 50 mg Tablet 50 mg PO DIRECTED PRN (Reason: Pain) RF: 0 gabapentin 400 mg capsule 400 mg PO QID RF: 0 sertraline 100 mg tablet 100 mg PO HS RF: 0 potassium chloride 20 mEq tablet,ER particles/crystals 20 meq PO QAM RF: 0 lisinopril 40 mg tablet 40 mg PO QAM RF: 0 hydralazine 25 mg Tablet 25 mg PO BID RF: 0 Discontinued ibuprofen 200 mg Tablet 400 mg PO Q6H PRN (Reason: Pain) RF: 0 Discharge Orders: Discharge Order (Routine); Ordered 10/08/19 Ordered By: Emery Tyler Admission Data Admit Date/Time: 10/05/19 00:34 Attending Provider: Emery Tyler Admit Provider: Olaf Bryant Primary Care Provider: Balwinder Pinedo Other Providers: Olaf Bryant ; Khanh Encinas Other Interventions: Discharge Summary Assessment (RN) Last Done: 10/08/19 10:04 DC Date/Time DO NOT enter until pt leaves facility: 10/08/19 13:40 Coding Level of Care Code D/C Day Management <30 mins Diagnoses CHF (congestive heart failure) I50.9 Heart failure chronicity: acute on chronic Heart failure type: unspecified
== END 2019-10-08 13:40 | disposition home health service (06) | DRG 292 ==
LOC: ED 20:40 → SUATTDRO 10-05 00:34 → 2N 10-05 00:34